=== PATIENT | female | born 1970 | race Caucasian/White ===

== ENCOUNTER 2017-03-22 14:16 | Inpatient (IN) | payer OTHER ==
[~2017-03-22] VITALS: Ht 165.1 cm; Wt 68.7 kg
[2017-03-22 14:42] VITALS: BP 114/75; PULSE 90; RESP 10; O2SAT 99
--- NOTE | 2017-03-22 15:30 | ED.REPORT ---
HPI-General Illness Date of Service Mar 22, 2017 ED Provider: Bolivar Arana MD The patient is a 46 year old female w/ a hx of opiate addiction and IV drug use who presents to the ED c/o of stabbing, right-sided, middle back pain with gradual onset over the past few days. The pain does not radiate, and is exacerbated by inhalation and movement. Tylenol helped to ease the pain slightly , her last dose was 2 hrs ago. Pt rates the pain at 10/10 at its most severe and currently 7/10. She denies any fall or injury that could have caused symptoms as well as fever, incontinence, loss of bowel control, dysuria, urinary urgency, or hematuria. Nursing Notes Stated Complaint: UPPER RIGHT SHOULDER PAIN, HARD TO BREATH Chief Complaint: Back Pain or Injury Nursing Notes Reviewed: Yes Allergies: Coded Allergies: No Known Allergies (Unverified , 03/22/17) No Active Prescriptions or Reported Meds General Time Seen by MD: 15:20 Chief Complaint Back pain Hx Obtained From: Patient Arrived By: Walk-in Sudden in Onset?: Yes Onset Occurred: 3 days ago Symptom Duration: Since onset Location: : Back Quality: Painful, Stabbing Radiation: : Does not radiate Severity: Current: Pain level 7 out of 10 Severity: Maximum: Pain level 10 out of 10 Pertinent Negative: Pt denies other symptoms Recent Healthcare: No recent doctor visit, No recent hospitalization Similar Sx Previous: No Past Medical History Past Medical History denies Past Surgical History laminectomy (L4 L5) in 1997, resultant staph infection Smoking History Unknown if Ever Smoker Social History opiate addiction for 25 years Drug Use: IV drugs, Meth Other Social History: Good social support, Local resident Ambulatory Status Independent Review of Systems Full Review of Systems Constitutional: Reports: Chills, Denies: Fever Female: Denies: Dysuria, Hematuria, Incontinence, Urinary urgency Musculoskeletal: Reports: Back pain Neurologic: Denies: Bladder dysfunction, Bowel dysfunction Complete sys rev & neg: except as marked. Physical Exam Nursing note and vitals reviewed. Constitutional: Well-developed, well-nourished, though appears very uncomfortable. Diaphoretic. Head: Normocephalic and atraumatic. Mouth/Throat: Oropharynx is clear and moist. No oropharyngeal exudate. Eyes: EOM are normal. Pupils are equal, round, and reactive to light. Neck: Supple, no tracheal deviation. Cardiovascular: Normal rate, regular rhythm. No murmurs. Equal and intact distal pulses throughout. Pulmonary/Chest: Effort normal and breath sounds normal. No respiratory distress. Abdominal: Soft. No distension. There is no tenderness, rebound, or guarding. Bowel sounds present Musculoskeletal: Pain with range of motion at right shoulder. No tenderness appreciated. Moving all extremities Neurological: AOx3. Grossly nonfocal exam. Strength and sensation intact and equal to bilateral upper and lower extremities. Skin: Diaphoretic, no rashes or pallor appreciated. Psychiatric: Appropriate mood and affect. Behavior appears normal. Vital Signs Vital Signs Date Time Temp Pulse Resp B/P Pulse Ox O2 Delivery O2 Flow Rate FiO2 03/22/17 19:15 36.8 78 14 99/62 95 Room Air 03/22/17 18:49 80 16 88/50 03/22/17 14:42 37.2 90 10 114/75 99 Room Air Initial VS: Reviewed Interpretation & Diagnostics Interpretation & Diagnostics: MRI CERVICAL SPINE IMPRESSION: 1. Negative for epidural abscess in the cervical spine. 2. Mild spondylitic changes at C5-6 and C6-7. MRI LUMBAR SPINE IMPRESSION: 1. Negative for epidural abscess in the lumbar spine. No evidence of discitis/osetomyelitis. 2. Surgical changes at L5-S1 level. Mild spondylitic changes. MRI THORACIC SPINE IMPRESSION: 1. Negative for epidural abscess in the thoracic spine. 2. Nonspecific enhancement in the parspinous soft tissues from T2-T5 levels. In the setting of IV drug use, this may represent myositis/cellulitis. No gross bone destruction to suggest osteomyelitis. No rim-enhancing fluid colelction to indicate an abscess. Lab Results Interpretation Result Diagram: 03/22/17 1620 03/22/17 1620 Test 03/22/17 16:20 03/22/17 16:39 03/22/17 17:40 White Blood Count 8.7th/mm3 (3.8-10.1) Red Blood Count 4.17mil/mm3 (3.90-5.20) Hemoglobin 11.8g/dL (12.0-15.6) Hematocrit 35.3% (35.0-46.0) Mean Corpuscular Volume 84.7fL (81-100) Mean Corpuscular Hemoglobin 28.3pg (27.0-35.0) Mean Corpuscular Hemoglobin Concent 33.4% (32.0-37.0) Red Cell Distribution Width 13.8% (12.3-15.4) Platelet Count 288bil/L (150-400) Neutrophils (%) (Auto) 81.8% (40-74) Lymphocytes (%) (Auto) 8.4% (14-46) Monocytes (%) (Auto) 7.9% (4-12) Eosinophils (%) (Auto) 1.4% (0-5) Basophils (%) (Auto) 0.2% (0-3) Erythrocyte Sedimentation Rate 57mm/hr (0-32) Prothrombin Time 10.5sec (8.1-12.5) Prothromb Time International Ratio 0.98ratio D-Dimer < 0.50mg/L FEU (<0.50) Sodium Level 131mEq/L (134-144) Potassium Level 3.7mEq/L (3.5-5.2) Chloride Level 93mEq/L (97-108) Carbon Dioxide Level 23mmol/L (18-29) Blood Urea Nitrogen 16mg/dL (6-24) Creatinine 0.74mg/dL (0.57-1.00) Estimat Glomerular Filtration Rate 121mL/min (>59) Glucose Level 99mg/dL (60-99) Lactic Acid Level 0.6mmol/L (0.4-2.0) Calcium Level 9.1mg/dL (8.5-10.1) Magnesium Level 2.0mg/dL (1.6-2.6) Total Bilirubin 1.6mg/dL (0.0-1.2) Aspartate Amino Transf (AST/SGOT) 9U/L (0-50) Alanine Aminotransferase (ALT/SGPT) 9U/L (0-32) Alkaline Phosphatase 63U/L (25-150) Troponin T < 0.010ug/L (0.0-0.011) C-Reactive Protein 7.8mg/dL (0.0-0.5) Total Protein 7.9g/dL (6.4-8.4) Albumin 3.5g/dL (3.4-5.0) Hold [place]ke[place] Top Tube Received (Received) Hold Urine Received (Received) Hold Purple Top Tube Received (Received) Hold Blue Top Tube Received (Received) Hold [place] Top Tube Received (Received) Lab Results Interpretation: LABS: Troponin negative D-dimer neg CBC with a neutrophil 81.8% WBC 8.7 otherwise grossly w/in normal limits Sodium 131 Bilirubin 1.6 ECG Interpretation Time: 16:20 Interpreted by: ED physician Normal ECG Interpretation: Normal sinus rhythm (71) X-Ray Chest Interpretation Chest Xray Interpretation: IMPRESSION: Negative chest. No acute cardiopulmonary process is evident. Dictated by: Cole Cespedes M.D. on 03/22/2017 at 15:26 Approved by: Cole Cespedes M.D. on 03/22/2017 at 15:26 View: Portable Interpretation / Wet Read by: Interpret - Radiologist CT Abd / Pelvis Interpretation IMPRESSION: Normal chest and abdominal CT. Specifically, the aorta is radiographically normal. Dictated by: Michael Pedraza M.D. on 03/22/2017 at 20:38 Approved by: Michael Pedraza M.D. on 03/22/2017 at 20:43 Study type: Abdominal CT no contrast Interpretation / Wet Read by: Interpret - Radiologist Re-Eval/Medical Decision Med Decision/Clinical Course In summary, 46 year old female with a complex past medical history including long-standing IV drug abuse presenting to the ED for evaluation of one day of severe right upper back pain that seems to radiate through to the chest. Differential is broad and includes epidural abscess, other compressive syndrome of the spine, aortic dissection, PE, ACS, osteomyelitis, acute infectious process, myositis. Initial laboratory studies notable for a negative troponin, negative d-dimer, but blood cell count of 8.7 with 81.8% neutrophils, sodium 131 , bilirubin of 1.6. EKG with no acute ischemic changes, sinus rhythm. Vital signs grossly within normal limits. Patient does appear extremely uncomfortable upon reassessment. A CT scan of the patient's chest was obtained to evaluate for aortic dissection; this was negative. Given the patient's history of IV drug abuse, an MRI of her spine was obtained; no evidence of epidural abscess or osteomyelitis, however does have enhancement in the paraspinous soft tissues from T2 to T5 on the right side; this is consistent with the location of the patient is having her pain. In the setting of her IV drug abuse, I am concerned that this may be infectious. Broad-spectrum antibiotics were initiated in the ED after blood cultures were drawn. Plan admission for further management and evaluation. Patient agreeable to the plan as stated, no further questions. Time of Eval: 19:13 Re-Evaluation/Progress Note: Pt rechecked. She is diaphoretic and sleeping. Plan for an MRI. Time of Eval: 22:58 Re-Evaluation/Progress Note: On reassessment, pt is still in pain. Informed pt of plan for admission. Counseled Regarding: Diagnosis, Lab results, Need for admission Discharge & Departure Primary Impression: Myositis Myositis type: unspecified type Myositis location: shoulder Laterality: right Qualified Code: M60.811 - Other myositis, right shoulder Disposition: ADMITTED TO HOSPITAL Discharge Condition All VS Reviewed: Yes Condition: Stable Referrals: NOPCP (PCP) [facility] Scribe Attestation Portion of this note were transcribed by Linn Grace. Dr. Sumit Fleming, personally performed the history, physical exam, and medical decision-making: I reviewed and confirmed the accuracy for the information in the transcribed note. Signed by: kevin Asencio, 03/22/17 1800 copies to: [facility] Bolivar Brwon MD Mar 22, 2017 15:30 Linn Grace Mar 22, 2017 15:54 [facility] Scribliseth Attestation Portion of this note were transcribed by Linn Grace. Dr. Sumit Fleming, personally performed the history, physical exam, and medical decision-making: I reviewed and confirmed the accuracy for the information in the transcribed note. Signed by: kevin Asencio, 03/22/17 1800 copies to: [facility] Bolivar Brown MD Mar 22, 2017 15:30 Linn Grace Mar 22, 2017 15:54
--- NOTE | 2017-03-22 16:28 | DRSVH ---
PROCEDURE: X-RAY CHEST, TWO VIEWS ([id number]) INDICATIONS: pain with deep breath TECHNIQUE: 2 views of the chest were acquired. COMPARISON: None. FINDINGS: Surgical changes and devices: None. Lungs and pleura: No pleural effusions or pneumothorax. Lungs are clear. Mediastinum: Mediastinal contours are normal. Heart size is normal. Bones and chest wall: No suspicious bony abnormalities. Soft tissues appear unremarkable. IMPRESSION: Negative chest. No acute cardiopulmonary process is evident. Dictated by: Cole Cespedes M.D. on 03/22/2017 at 15:26 Approved by: Cole Cespedes M.D. on 03/22/2017 at 15:26
[2017-03-22 16:35] LABS: BASOPHILS % (AUTO) 0.2 % (0-3); EOSINOPHILS % (AUTO) 1.4 % (0-5); MONOCYTES % (AUTO) 7.9 % (4-12); Mean Corpuscular Hemoglobin 28.3 pg (27.0-35.0); Mean Corpuscular Volume 84.7 fL (81-100); NEUTROPHILS % (AUTO) 81.8 % (40-74); Platelet Count 288 bil/L (150-400)
[2017-03-22 17:01] LABS: D-Dimer < 0.50 mg/L FEU (<0.50); INR 0.98 ratio
[2017-03-22 17:09] LABS: TROPONIN T < 0.010 ug/L (0.0-0.011)
[2017-03-22 18:49] VITALS: BP 88/50; PULSE 80; RESP 16
[2017-03-22 19:15] VITALS: BP 99/62; PULSE 78; RESP 14; O2SAT 95
--- NOTE | 2017-03-22 20:45 | DRSVH ---
PROCEDURE: CT ANG CHEST/ABD W/WO CONTRAST ([id number]) INDICATIONS: back pain, diaphoresis; eval dissection, other abn TECHNIQUE: Precontrast 5 mm thick sections acquired from the lung apices to the iliac crests. After the adminis tration of intravenous contrast, 3 mm thick sections again acquired from the lung apices to the iliac crests. 3-dimensional maximum intensity projection (MIP) oblique sagittal and coronal reformats wer e then acquired, and/or 3-dimensional volume rendering reformats. For radiation dose reduction, the following was used: automated exposure control. COMPARISON: None. FINDINGS: Image quality: Excellent. AORTA: Normal thoracic and abdominal aorta. No stenosis dissection, or aneurysm.. CHEST: Lungs and pleura: No acute airspace opacities. No pleural effusions or pneumothorax. Central and p eripheral airways are patent and normal in caliber. Mediastinum: Heart size is normal. No pericardial effusion. No mediastinal or hilar adenopathy by size criteria. Central pulmonary arteries are normal in size. Esophagus is normal in caliber. No h iatal hernias. Bones and chest wall: No axillary adenopathy by size criteria. Thyroid gland is grossly normal. No suspicious bony lesions. No vertebral body compression fractures. ABDOMEN: Vasculature: Celiac trunk and mesenteric arteries are patent. Renal arteries are also patent. Solid organs: Liver and spleen are normal in size. Gallbladder is present. Biliary system is non d ilated. Pancreas enhances normally. No adrenal nodules. Both kidneys are normal in size and enhanc ement, without hydronephrosis. Peritoneum and bowel: No free fluid or air. Bowel loops are normal in caliber and wall thickness. Nodes and vessels: No retroperitoneal or mesenteric adenopathy by size criteria. Inferior vena cava is normal in morphology. Bones: No suspicious bony lesions. No vertebral body compression fractures. Miscellaneous: No ventral hernias. IMPRESSION: Normal chest and abdominal CT. Specifically, the aorta is radiographically normal. Dictated by: Michael Pedraza M.D. on 03/22/2017 at 20:38 Approved by: Michael Pedraza M.D. on 03/22/2017 at 20:43
[2017-03-22] MEDS ORDERED: Meropenem Inj 1,000 MG in 0.9% Sodium Chloride 100 ML IV ONE (23:30)
[2017-03-22] MEDS ORDERED: Vancomycin Dose per Pharmacist XX ONE (23:30)
[2017-03-22] MEDS ORDERED: Clindamycin Inj 900 MG in IV Premix 1 EACH IV ONE (23:30)
[2017-03-22] MEDS ORDERED: Vancomycin Inj 1,250 MG in 0.9% Sodium Chloride 250 ML IV ONE (23:35)
[2017-03-23] VITALS (9 sets, daily range): BP systolic 99–117; BP diastolic 61–75; PULSE 73–92; RESP 15–20; O2SAT 98–100
[2017-03-23] MEDS ORDERED: 0.9% Sodium Chloride 1,000 ML IV ONE (00:15)
[2017-03-23] MEDS ORDERED: 0.9% Sodium Chloride 1,000 ML IV SCH (00:22)
[2017-03-23] MEDS ORDERED: Ondansetron 2 mg/mL 2 mL Inj IVPUSH PRN (00:25)
[2017-03-23] MEDS ORDERED: Polyethylene Glycol (PEG) 17 Gm Powder PO PRN (00:25)
[2017-03-23] MEDS ORDERED: Alum-Mag Hydrox-Simeth 30 mL Suspension PO PRN (00:25)
[2017-03-23] MEDS: Sodium Chloride LOK Flush 10 mL Syringe IVFLUSH SCH ×3 (00:30→16:23)
[2017-03-23] MEDS ORDERED: Ketorolac 15 mg/mL Inj IVPUSH PRN (00:35)
--- NOTE | 2017-03-23 01:16 | PCM.HPMED ---
Subjective Date of Service Mar 23, 2017 Primary Provider: Admitting Physician: Quan Lu MD Primary Care Physician: Faizan Attending Physician: Quan Lu MD Chief Complaint: back pain History of Present Illness: 46 yo F with history of Bipolar disorder, anxiety disorder on chronic benzos, and IVDU who presented to the ED for mid-back pain x 2 days. Patient was lethargic throughout the exam, so history is somewhat limited. Her partner reports that patient had been complaining of fairly severe sharp mid back pain the last few days. She has also been complaining of nausea and general malaise and not feeling well. She admits to using IV heroine and meth, but reports that she receives clean needles from the [facility] and does not lick her needles or share needles. She reports only injecting into her arms and never her back or buttocks. She denies any fevers the last 2 days, but notes drenching chills and nausea intermittently. She specifically denies any CP, SOB , abd pain, rash, or diarrhea. 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 She has been having poor oral intake due to the pain and nausea. In the ED, she did not spike a temperature was both noted to be hypotensive in the upper 80s to 90s systolic. Her CBC was benign other than 82% neutrophils with a white count of 3.7. She does have an ESR 57. Her CMP was notable for mildly elevated total bilirubin and mildly low sodium and chloride with a CRP of 7.8. UA lactic acid were pending She had a CT of her abdomen and pelvis which were benign She also had an MRI of her spine which showed a nonspecific enhancement in the paraspinous soft tissues from T2 to T5, which may have represented an infectious myositis/cellulitis in this IV drug user. She was started on vancomycin, meropenem, clindamycin in the ED. She only received IV Toradol during her ED admission. Review of Systems: Comprehensive review of systems was conducted with the patient and found to be negative except as noted above in HPI. Allergies Coded Allergies: No Known Allergies (Unverified , 03/22/17) Home Medications From next gen 03/15/2016 04:30 PM 09/06 Start Date Medication Directions Stop Date 04/15/2015 clobetasol 0.05 % topical cream apply by topical route 2 times every day a thin layer to the affected area(s) for 2 weeks then only 1-2 times a week as needed 03/15/2016 clonazepam 1 mg tablet 1 po 2-3 times daily only as needed for severe anxiety 06/08/2016 03/15/2016 clotrimazole 1 % topical cream apply by topical route 2 times every day to the affected and surrounding areas of skin in the morning and evening 02/18/2015 TRIAMCINOLONE 0.1% CREAM APPLY A THIN LAYER TO AFFECTED AREA(S) TWO TIMES A DAY PMH Bipolar disorder Depression and Anxiety disorder Benzodiazepine dependence History of opiate addiction Surgical History Laminectomy Family History Family history of hypertension and rheumatoid arthritis Social History Hx Alcohol Use: Yes (rare) Hx Substance Use: Yes (IVD meth) Smoking Status: Current Every Day Smoker Living Arrangement: with Family Exam Vital Signs Vital Sign - Last Date Time Temp Pulse Resp B/P Pulse Ox O2 Delivery O2 Flow Rate FiO2 03/22/17 19:15 36.8 78 14 99/62 95 Room Air Exam General: Well-developed female who appears lethargic and diaphoretic HEENT: Normocephalic, atraumatic. External ears without defect. PERRLA, EOMI. Anicteric sclerae, moist conjunctivae, and no lid lag. Oropharynx was dry but pink mucosa with scattered patricia's pieces Neck: Supple with full range of motion. No jugular venous distension. No bruits. No lymphadenopathy or thyromegaly. Cardiovascular: Regular rate and rhythm with soft systolic murmur Pulmonary: Clear to auscultation bilaterally with no crackles, wheezes, or rhonchi. Normal respiratory effort with no use of accessory muscles. Abdomen: Bowel tones present. Soft, nontender, nondistended. No hepatosplenomegaly or masses appreciated. MSK: Diffuse track ramos on both forearms. No cyanosis or edema noted. Thoracic paraspinal muscles mildly tender to palpation, no consolidation palpable, no erythema/rash noted, although there is a Jim mustard packet that is paper taped to her midback, which may be her back up supply. Skin: Warm, dry, intact, no other rashes appreciated. Neurological:Pt is lethargic and cooperation in neuro exam was limited. She was able to move all extremities, give short answers occasionally. Psychiatric: Lethargic and anxious occasionally. Alert and oriented only to person and place, cooperative. Lab and Diagnostics Result Diagram: 03/22/17 1620 03/22/17 1620 X-Rays, CTs and MRIs PROCEDURE: CT ANG CHEST/ABD W/WO CONTRAST ([id number]) IMPRESSION: Normal chest and abdominal CT. Specifically, the aorta is radiographically normal. PROCEDURE: X-RAY CHEST, TWO VIEWS ([id number]) IMPRESSION: Negative chest. No acute cardiopulmonary process is evident. MRI CERVICAL SPINE IMPRESSION: 1. Negative for epidural abscess in the cervical spine. 2. Mild spondylitic changes at C5-6 and C6-7. MRI LUMBAR SPINE IMPRESSION: 1. Negative for epidural abscess in the lumbar spine. No evidence of discitis/osetomyelitis. 2. Surgical changes at L5-S1 level. Mild spondylitic changes. MRI THORACIC SPINE IMPRESSION: 1. Negative for epidural abscess in the thoracic spine. 2. Nonspecific enhancement in the parspinous soft tissues from T2-T5 levels. In the setting of IV drug use, this may represent myositis/cellulitis. No gross bone destruction to suggest osteomyelitis. No rim-enhancing fluid colelction to indicate an abscess. Assessment & Plan 46 yo F with history of Bipolar disorder, anxiety disorder on chronic benzos, and IVDU who presented to the ED for mid-back pain and diaphoresis x 2 days Acute Myositis, POA As noted on MRI of her thoracics. Finding may represent nonspecific inflammatory disorder, or with her h/o of IVDU, may be due to pyomyositis or cellulitis Blood cultures were drawn in the ED. IV Vanco, Meropenem, and Clindamycin was initiated in the ED on 03/23. Will plan to continue this regimen while we consult Infectious Disease. Will order 1 L NS bolus due to patient's developing hypotension and then continue with 150mls/hr maintenance fluid. LRINEC score of 3, low risk for NSTI Will follow inflammatory markers Toradol and Zofran for symptom management, Dehydration. POA Likely the cause of patient's low sodium and chloride. Will treat as above and monitor Mood Disorders, POA Per [facility] records, patient is chronically on Clonazepam for her anxiety. Will plan to use Ativan prn anxiety She appears to not be on any anti-depressant or anti-psychotic at this moment. She was on [place] and Latuda prior. Will try to avoid Opiates with her history of opiate addiction H/o IVDU, POA Encourage cessation PERSONAL CARE WORKER consult Tobacco dependence. POA Encourage cessation Nicotine patch prn CODE STATUS: Full resuscitation Patient is admitted under inpatient status with expected length of stay greater than 2 midnights due to severity of presenting symptoms, risk of adverse event, and complexity of treatment plan. Pain Evaluation: Pain not Controlled VTE Prophylaxis: Sub-Q Enoxaparin Resuscitation Status: CPR: Attempt Resuscitation Attending Statement The patient was seen and examined together with Dr. Hyde on 03/22 and I agree with the history, exam and plan as outlined in the note above. copies to: Lilian Pena PA-C, Hong D DO Mar 23, 2017 00:34 Quan Lu MD Mar 23, 2017 06:34
[2017-03-23 03:10] LABS: APPEARANCE,URINE CLOUDY (CLEAR,HAZY); COLOR,URINE YELLOW (YELLOW); PH,URINE 5.5 (5.0-8.0)
[2017-03-23 03:15] LABS: OCCULT BLOOD,URINE NEGATIVE (NEGATIVE); UROBILINOGEN,URINE NORMAL (NORMAL)
[2017-03-23] MEDS: 0.9% Sodium Chloride 1,000 ML IV SCH ×2 (04:42→13:31)
[2017-03-23 06:25] LABS: BASOPHILS % (AUTO) 0.3 % (0-3); EOSINOPHILS % (AUTO) 5.1 % (0-5); Mean Corpuscular Hemoglobin 28.1 pg (27.0-35.0); Mean Corpuscular Volume 86.2 fL (81-100); NEUTROPHILS % (AUTO) 70.6 % (40-74); Platelet Count 223 bil/L (150-400)
--- NOTE | 2017-03-23 07:20 | PCM.CONPHA ---
Subjective Date of Service: Mar 23, 2017 Requesting Provider: Franky Hyde DO back pain History of Present Illness myositis/cellulitis Reason for Pharmacy Consult: Vancomycin Dosing Objective Assessment/Plan Assessment/Plan A/ - 46 y/o ivdu female admitted in for suspected myositis/cellulitis and Vancomycin initiated for empirical coverage - Afebrile. WBC is unremarkable at 8.7. Blood cultures are pending - In ED, received vancomycin iv loading dose 1250mg, meropenem x1, and clindamycin which to be continued - Wt: 68.7kg, ht: 165cm, BMI: 25.2 kg/m2, SCr: 0.78 mg/dL, estimated clearance~102ml/min, t1/2~8hrs, Vd~48L - ID consult ordered for in the morning, and IVF @150ml/hr P/ - Give vancomycin 750mg iv q8h, 1st dose starts 7hrs after loading dose. Trough level ordered before 4th dose @0200 on 03/24 Pharmacy will continue to monitor and make necessary adjustment Thank you for consulting clinical pharmacy in the care of this patient Jackie Espino Mar 23, 2017 07:20
--- NOTE | 2017-03-23 07:31 | NUR ---
Admit Pt admitted to [facility] rm 1029 at 0025 from ED. Pt here with severe pain in right shoulder. A/O x3, able to make needs known but drowsy due to ativan given in the ED. Oriented to room, bathroom and bed controls. IV in right AC patent, fluid bolus running. Pt is CPR. General diet, Able to transfer off gurney and walk to bed. SCD's on. Ativan and toradol being used for pain control. VSS, afebrile. Call light in reach, care continues.
[2017-03-23] MEDS ORDERED: Meropenem Inj 1,000 MG in 0.9% Sodium Chloride 100 ML IV SCH (08:30)
[2017-03-23] MEDS ORDERED: Vancomycin Dose per Pharmacist XX SCH (08:30)
--- NOTE | 2017-03-23 09:33 | DRSVH ---
PROCEDURE: MRI LUMBAR SPINE WITH AND WITHOUT CONTRAST ([id number]) INDICATIONS: back pain, hx IVDA, diaphoresis; eval abscess, etc TECHNIQUE: Noncontrast sagittal T1 spin echo and T2 fast spin echo, sagittal STIR, axial T1 and T2 fast spin ech o through the lumbar spine. In cases with scoliosis, additional coronal T2 fast spin echo may be per formed. After the administration of contrast, sagittal and axial T1 spin echo with fat saturation th rough the lumbar spine. COMPARISON: None. FINDINGS: Image quality: Excellent. Alignment and curvature: Postsurgical changes compatible with L5-S1 interbody fusion noted. There is normal bony alignment. There is convex right lumbar spine curvature. Marrow: Reactive endplate change is noted adjacent to the L4-L5 disc. No acute vertebral body lex raymond fractures. No suspicious marrow enhancement. Spinal cord: Conus medullaris terminates at the L1-L2 disc level. Visualized spinal cord demonstrat es normal signal, without suspicious enhancement. No epidural fluid collections identified. Paraspinous soft tissues: No paravertebral masses or abnormal enhancement. L1-L2: Loss of disc signal and height. Moderate, diffuse disc bulge. Mild central canal secondary to disc disease. Mild bilateral neuroforaminal narrowing secondary to disc disease. L2-L3: Loss of disc signal and height. Moderate, diffuse disc bulge. Mild central canal secondary to disc disease. Mild bilateral neuroforaminal narrowing secondary to disc disease. L3-L4: Loss of the signal. Moderate, diffuse disc bulge. Mild bilateral facet hypertrophy. Moderate c entral canal secondary to disc disease and facet hypertrophy. Moderate bilateral neural foraminal pee rowing secondary to disc and facet disease. L4-L5: Loss of disc signal and height. Mild diffuse disc bulge. Moderate bilateral facet hypertrophy. Mild central canal secondary to disc disease and facet hypertrophy. Moderate bilateral neural forami nal narrowing secondary to disc and facet disease. L5-S1: Status post discectomy and interbody fusion. No central stenosis. No neural foraminal narrowin g.. IMPRESSION: 1. No evidence for epidural abscess. 2. No evidence of discitis/osteomyelitis. 3. Postsurgical changes. 4. Multilevel degenerative disease. 5. Multiple psychotropic. 6. Mild L1-L2, L2 and L3 and L4-L5 central canal narrowing. Moderate L3-L4 central canal narrowing. 7. Mild bilateral L1-L2 and L2-L3 neural foraminal narrowing. Moderate bilateral L3-L4 and L4-L5 neur al foraminal narrowing. Dictated by: Chioma Jalloh MD, PhD on 03/23/2017 at 8:33 Approved by: Chioma Jalloh MD, PhD on 03/23/2017 at 9:31
[2017-03-23] MEDS: Ketorolac 15 mg/mL Inj IVPUSH PRN ×2 (09:49→13:41)
--- NOTE | 2017-03-23 10:06 | DRSVH ---
PROCEDURE: MRI THORACIC SPINE WITH AND WITHOUT CONTRAST ([id number]) INDICATIONS: back pain, hx IVDA, diaphoresis; eval abscess, etc TECHNIQUE: Noncontrast sagittal T1 spin echo and T2 fast spin echo, sagittal STIR, axial T1 and T2 fast spin ech o through the thoracic spine. After the administration of contrast, axial and sagittal T1 spin echo with fat saturation through the thoracic spine. COMPARISON: [facility], MR, MR CERVICAL SPINE W&WO CON, 03/22/2017, 21:34. [facility], MR, MR LUMBAR SPINE W&WO CON, 03/22/2017, 21:34. FINDINGS: Image quality: Excellent. Alignment and curvature: There is normal bony alignment and curvature. Marrow: Marrow is of normal overall signal. No acute vertebral body compression fractures. Spinal cord: Visualized spinal cord is of normal signal and size, without abnormal enhancement. No e pidural abscess is identified. There is linear, postcontrast enhancement in the posterior epidural sp zhao extending from the T2-T8 vertebral bodies. There is slight flattening contour of the posterior ma rgin of the thoracic spinal cord level he T3-T4 disc. No mass or abnormal enhancement is identified i n the region of the slight posterior margin thoracic spinal cord flattening deformity. Slight deformi ty may be caused by a small arachnoid cyst. Paraspinous soft tissues: No paravertebral masses. There is mild postcontrast enhancement in the pos terior paraspinous soft tissues from the level of the T2-T5 vertebral bodies. Miscellaneous: Central canal and foramina appear widely patent at all scanned levels. IMPRESSION: 1. No epidural abscess identified. There is mild, linear postcontrast enhancement in the posterior ep idural space extending from T2-T8 vertebral body levels which may represent a reactive change associa lorenza with adjacent T2-T5 myositis or cellulitis or early epidural space infection. 2. Mild post contrast enhancement involving the dura paraspinous soft tissues are the level the T2-T5 vertebral bodies. Finding is nonspecific but can be seen in myositis/cellulitis. Please correlate wi th clinical data. 3. No evidence of discitis/osteomyelitis. Dictated by: Chioma Jalloh MD, PhD on 03/23/2017 at 9:56 Approved by: Chioma Jalloh MD, PhD on 03/23/2017 at 10:03
[2017-03-23] MEDS: Vancomycin Inj 750 MG in 0.9% Sodium Chloride 250 ML IV SCH ×2 (10:50→17:38)
[2017-03-23] MEDS ORDERED: Clindamycin Inj 900 MG in IV Premix 1 EACH IV SCH (11:00)
--- NOTE | 2017-03-23 11:15 | DRSVH ---
PROCEDURE: MRI CERVICAL SPINE WITH AND WITHOUT CONTRAST ([id number]) INDICATIONS: back pain, hx IVDA, diaphoresis; eval abscess. TECHNIQUE: Noncontrast sagittal T1 spin echo and T2 fast spin echo, sagittal STIR, foraminal oblique sagittal T2 fast spin echo, axial gradient echo or T2 fast spin echo through the cervical spine. After the admi nistration of contrast, sagittal and axial T1 spin echo with fat saturation through the cervical spin e. COMPARISON: None. FINDINGS: Image quality: Limited by motion artifact. Alignment and curvature: There is normal bony alignment. There is straightening of normal cervical s pine curvature. Marrow: Reactive endplate change is noted adjacent to the C4-C5, C5-C6 and C6-C7 discs. Spinal cord: Visualized spinal cord is normal in size, without white matter lesions. No suspicious intramedullary enhancement. No cerebellar tonsillar herniation. No epidural abscess identified. Paraspinous soft tissues: No paravertebral masses or suspicious enhancement. C2-C3: Normal appearance. C3-C4: Loss of the signal. Minimal, diffuse disc bulge. No central stenosis. Mild bilateral uncoverte bral joint hypertrophy. Mild bilateral neural foraminal narrowing secondary to disc disease and uncov ertebral joint hypertrophy. C4-C5: Loss of the signal. Mild, diffuse disc bulge. No central stenosis. No neural foraminal narrowi ng. Focal high intensity zone is noted in the posterior annulus compatible with a fissure. C5-C6: Loss of disc signal and height. Moderate, diffuse disc bulge. Moderate narrowing of the centra l canal secondary to disc disease. Mild bilateral uncovertebral joint hypertrophy. Mild right and mod erate left neural foraminal narrowing secondary to disc disease and uncovertebral joint hypertrophy. C6-C7: Loss of disc signal and height. Mild diffuse disc bulge. Mild central canal secondary to disc disease. Moderate right and mild left uncovertebral joint hypertrophy. Moderate right and mild left n eural foraminal narrowing secondary to disc disease and uncovertebral joint hypertrophy. C7-T1: Normal appearance. IMPRESSION: 1. No epidural abscess. 2. No discitis/osteomyelitis. 3. Multilevel degenerative disc disease. 4. Moderate C5-C6 central canal narrowing. Mild C6-C7 central canal narrowing. 5. Mild bilateral C3-C4 neural foraminal narrowing. Mild right and moderate left C5-C6 neural foramin al narrowing. Moderate right and mild left C6-C7 neural foraminal narrowing. Dictated by: Chioma Jalloh MD, PhD on 03/23/2017 at 11:06 Approved by: Chioma Jalloh MD, PhD on 03/23/2017 at 11:13
--- NOTE | 2017-03-23 12:21 | CONS ---
[address] [address] CONSULTATION REPORT PATIENT: KAYLENE GALLARDO : 1970 MR#: [id number] ADMIT: 03/22/2017 JOB ID: [id number] DATE OF SERVICE: 03/23/2017 INFECTIOUS DISEASE CONSULTATION: I thank Dr. Rojas for this timely consult. REASON FOR CONSULTATION: Paraspinous infection in an IV drug user. HISTORY OF THE PRESENT ILLNESS: The patient is a 46-year-old intravenous heroin user who states that she uses IV heroin on a daily basis but has never had any significant infections whatsoever. She has not been confined in any hospital for almost 20 years and reports no infectious complications whatsoever from her intravenous heroin use. She reports that more recently, she developed fairly severe back pain, which led to her evaluation in the ED late on March 22 and her admission early this morning. This was associated with diaphoresis and malaise, as well as some nausea, vomiting and generalized weakness but no focal weakness, fevers, or chills. She denies any ongoing pulmonary symptomatology. She tells us that she has good strength in her lower extremities, no problems with her bowel or bladder or balance. She does believe she is also now starting to withdraw from heroin. PAST MEDICAL HISTORY: 1. Bipolar disorder. 2. Generalized anxiety disorder. 3. Chronic benzodiazepine use. 4. Longstanding IV drug use. 5. History of lower lumbar laminectomy for back pain. SOCIAL HISTORY: The patient is a daily IV heroin user. She does not use alcohol but she is also significant cigarette smoker. She is unemployed and lives on [facility]. FAMILY HISTORY: Positive for TB. When asked to specify which relatives were infected she states "everyone." Going to her lethargy, she does not provide any more history. REVIEW OF SYSTEMS: Was done but was a bit difficult because of the patient's lethargic state. She says she has no headache, no visual change, no sore throat or trouble swallowing. She has no cough or shortness of breath. No chest pain. She has had nausea and vomiting, which may be due to drug withdrawal or not. She is not certain. No diarrhea. No trouble controlling her bowel or bladder. No troubles with balance. She reports good strength in her lower extremities. No sensory abnormalities. Review of systems otherwise negative. PHYSICAL EXAMINATION: Reveals an afebrile woman. Temperature 37.6. She has been afebrile throughout her slightly less than 24 hours here in the hospital. Pulse is 73, respiratory rate 18, blood pressure 114/73, saturating 100% on room air. The patient is quite sleepy and difficult to rouse or keep awake but when awake she is oriented and able to provide an appropriate history. She looks depressed and somewhat withdrawn and older than 46 years old. Her current BMI is 25, however. Head without trauma. No temporal wasting. Eyes without conjunctivitis. Oral cavity: No thrush or hairy leukoplakia. Neck: Supple. Lungs: Clear. Cardiac tones: Regular rate and rhythm without murmur. Abdomen without hepatosplenomegaly or ascites. She does not have a Dubon catheter. Her back is exquisitely tender over the upper thoracic area. She has good strength in her lower extremities. She has intact ankle jerks. She has no skin rash. No synovitis and no focal neurologic deficits. Remainder of the physical unremarkable. LABORATORIES: Include white count 6700 with basically normal diff except 5% eos. Her creatinine 0.78. Urinalysis, no white cells, no red cells. A streptozyme is pending as our only serology. Two sets of blood cultures were drawn in the ED just past midnight on March 22, and those are negative at almost 36 hours now. The patient's chest x-ray is clear. A chest and abdomen CT scan was done which was normal. The thoracic MRI is abnormal and shows no epidural abscess. No diskitis and no osteomyelitis but there is linear enhancement in the posterior epidural space from T2-T8. There is what appears to be T2-T5 myositis noted. A lumbar spine MRI shows surgical changes but no diskitis, osteomyelitis, or any other infectious concerns, and cervical spine, no diskitis, epidural, or osteomyelitis. There are some degenerative changes. IMPRESSION: This is a complicated case of a younger woman who has been a daily intravenous drug user for a very long period of time and has never suffered an infectious complication. She obviously takes care not to lick needles and uses good technique. Nonetheless, she has now suffered what appears to be a serious infection involving her thoracic paraspinous region with some enhancement of the posterior epidural space but without maggie epidural infection. Unfortunately, that leaves us with no target, such as an infected disk or epidural space, to perform a needle biopsy or open surgery to obtain additional cultures. We are going to be left with largely empiric treatment, I am afraid. Most infections such as this are due to Staphylococcus aureus but many possibilities exist including gram-negative rods and other more atypical organisms such as tuberculosis and others. At this point, we are going to be forced to treat the patient broadly and hope that our blood cultures deliver a positive result. Note that the patient's CRP is very elevated which raises the possibility of early epidural abscess and/or early vertebral osteomyelitis. RECOMMENDATIONS: 1. Will need to complete our medical database here with an HIV, hepatitis C and QuantiFERON Gold given her family history. 2. There is no indication to check for brucellosis under these circumstances. 3. Will check a bartonella serology on the off chance that is the culprit here, though I think it is very unlikely. 4. I agree with the very broad antibiotics which have been started and unfortunately, I am going to be stuck with fairly broad antibiotics unless we find a positive culture. Clindamycin can be discontinued at this point but will continue with vancomycin and meropenem for the time being. 5. Will continue to follow this complex patient with you. Note that I will be off work the next nine days and returning to work April 02 but I can be reached by telephone about this or any other case. 6. Serial neural evaluations are indicated on this patient, and these should probably be done twice or so a day. These should include some tests of strength in the lower extremities, as well as focused questioning about bowel and bladder function. 7. At this point, I do not see an indication to transfer the patient for neurosurgical or spine surgery evaluation, as there are no focal findings and no clear epidural abscess seen on the MRI scan.
[2017-03-23] MEDS ORDERED: Multivit-Miner-Folic Acid-Iron Tablet PO SCH (17:40)
--- NOTE | 2017-03-23 18:22 | NUR ---
AMA Pt threatening AMA multiple times throughout the shift; going through withdrawal. Pt impulsive and not caring about IV lines/poles. edge burnisher called Dr. Rojas who came down to talk to pt. Pt then agreeable to care - This RN also talked to pt re: current plan of care. Pt received 5mg IVP Valium. Pt finished eating dinner and again agitated and stating AMA because she had to 'wait an hour' for medications, when it had been 30-45mins at best. Page to Dr. Rojas again and made aware that pt going to leave AMA. Pt aware of risks of leaving AMA and signed. IV dc'd intact. Security present to unlock belongings. Pt with belongings and walked off unit.
[2017-03-24] MEDS ORDERED: Vancomycin Serum Trough XX ONE (01:30)
--- NOTE | 2017-03-24 07:25 | PCM.DC.MED ---
Discharge Summary Date of Service Mar 24, 2017 Dates of Hospitalization Date of Hospital Admission Mar 22, 2017 at 23:49 Date of Discharge: Mar 23, 2017 (AMA) Providers: Admitting Physician: Quan Lu MD Primary Care Physician: Faizan Attending Physician: Peter Rojas MD Procedures XRay, CTs & MRIs PROCEDURE: CT ANG CHEST/ABD W/WO CONTRAST ([id number]) IMPRESSION: Normal chest and abdominal CT. Specifically, the aorta is radiographically normal. PROCEDURE: X-RAY CHEST, TWO VIEWS ([id number]) IMPRESSION: Negative chest. No acute cardiopulmonary process is evident. MRI CERVICAL SPINE IMPRESSION: 1. Negative for epidural abscess in the cervical spine. 2. Mild spondylitic changes at C5-6 and C6-7. MRI LUMBAR SPINE IMPRESSION: 1. Negative for epidural abscess in the lumbar spine. No evidence of discitis/osetomyelitis. 2. Surgical changes at L5-S1 level. Mild spondylitic changes. MRI THORACIC SPINE IMPRESSION: 1. Negative for epidural abscess in the thoracic spine. 2. Nonspecific enhancement in the parspinous soft tissues from T2-T5 levels. In the setting of IV drug use, this may represent myositis/cellulitis. No gross bone destruction to suggest osteomyelitis. No rim-enhancing fluid colelction to indicate an abscess. Brief History 46 yo F with history of Bipolar disorder, anxiety disorder on chronic benzos, and IVDU who presented to the ED for mid-back pain x 2 days. Patient was lethargic throughout the exam, so history is somewhat limited. Her partner reports that patient had been complaining of fairly severe sharp mid back pain the last few days. She has also been complaining of nausea and general malaise and not feeling well. She admits to using IV heroine and meth, but reports that she receives clean needles from the [facility] and does not lick her needles or share needles. She reports only injecting into her arms and never her back or buttocks. She denies any fevers the last 2 days, but notes drenching chills and nausea intermittently. She specifically denies any CP, SOB , abd pain, rash, or diarrhea. 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 She has been having poor oral intake due to the pain and nausea. In the ED, she did not spike a temperature was both noted to be hypotensive in the upper 80s to 90s systolic. Her CBC was benign other than 82% neutrophils with a white count of 3.7. She does have an ESR 57. Her CMP was notable for mildly elevated total bilirubin and mildly low sodium and chloride with a CRP of 7.8. UA lactic acid were pending She had a CT of her abdomen and pelvis which were benign She also had an MRI of her spine which showed a nonspecific enhancement in the paraspinous soft tissues from T2 to T5, which may have represented an infectious myositis/cellulitis in this IV drug user. She was started on vancomycin, meropenem, clindamycin in the ED. She only received IV Toradol during her ED admission. Hospital Course 46 yo F with history of Bipolar disorder, anxiety disorder on chronic benzos, and IVDU who presented to the ED for mid-back pain and diaphoresis x 2 days. Patient was being treated for infection and benzo withdrawl. LEFT AMA. Acute Myositis, POA As noted on MRI of her thoracics. Finding may represent nonspecific inflammatory disorder, or with her h/o of IVDU, may be due to pyomyositis or cellulitis Blood cultures were drawn in the ED. IV Vanco, Meropenem, and Clindamycin was initiated in the ED on 03/23. ID consulted, kept on vanco and meropenem Will order 1 L NS bolus due to patient's developing hypotension and then continue with 150mls/hr maintenance fluid. LRINEC score of 3, low risk for NSTI Toradol and Zofran for symptom management, Benzo withdrawl on CIWA protocol, with scheduled valium TID Dehydration. POA Likely the cause of patient's low sodium and chloride. Mood Disorders, POA Per [employer] records, patient is chronically on Clonazepam for her anxiety. H/o IVDU, POA Encourage cessation PRESS WASHER consult Tobacco dependence. POA Encourage cessation Nicotine patch prn CODE STATUS: Full resuscitation Patient left AMA. Exam Vital Signs (Last) Date Time Temp Pulse Resp B/P Pulse Ox O2 Delivery O2 Flow Rate FiO2 03/23/17 17:53 91 03/23/17 17:06 37.1 18 111/69 100 Room Air Test 03/22/17 16:20 03/22/17 16:39 03/22/17 17:40 03/23/17 06:11 Erythrocyte Sedimentation Rate 57mm/hr (0-32) Prothrombin Time 10.5sec (8.1-12.5) Prothromb Time International Ratio 0.98ratio D-Dimer < 0.50mg/L FEU (<0.50) Lactic Acid Level 0.6mmol/L (0.4-2.0) Magnesium Level 2.0mg/dL (1.6-2.6) Troponin T < 0.010ug/L (0.0-0.011) Hold Mckeon Top Tube Received (Received) Streptozyme 439.0IU/mL (0.0-200.0) Urine Color Yellow (YELLOW) Urine Appearance Cloudy (CLEAR,HAZY) Urine pH 5.5 (5.0-8.0) Urine Specific [place] 1.025 (1.003-1.035) Urine Protein Negativemg/dL (NEG,TRACE) Urine Glucose (UA) Negativemg/dL (NEGATIVE) Urine Ketones Tracemg/dL (NEGATIVE) Urine Occult Blood Negative (NEGATIVE) Urine Nitrite Negative (NEGATIVE) Urine Bilirubin Negative (NEGATIVE) Urine Urobilinogen Normalmg/dL (NORMAL) Urine Leukocyte Esterase Negative (NEGATIVE) Urine RBC 0-2/hpf (0-2) Urine WBC 0-5/hpf (0-5) Urine Epithelial Cells Few/hpf (NONE-MOD) Urine Crystals None seen (NONE SEEN) Urine Bacteria Few/hpf (NONE-FEW) Urine Hyaline Casts None/lpf (NONE) Urine Granular Casts None seen (NONE SEEN) Urine Waxy Casts None seen (NONE SEEN) Urine Red Blood Cell Casts None seen (NONE SEEN) Urine White Blood Cell Casts None seen (NONE SEEN) Urine Mucus None seen (None Seen) Urine Trichomonas None seen (NONE SEEN) Urine Yeast None (NONE SEEN) Urinalysis Comment Amorphous sediment Urine Culture Reflexed Not indicated Hold Urine Received (Received) Hold Purple Top Tube Received (Received) Hold Blue Top Tube Received (Received) Hold [place] Top Tube Received (Received) White Blood Count 6.7th/mm3 (3.8-10.1) Red Blood Count 3.63mil/mm3 (3.90-5.20) Hemoglobin 10.2g/dL (12.0-15.6) Hematocrit 31.3% (35.0-46.0) Mean Corpuscular Volume 86.2fL (81-100) Mean Corpuscular Hemoglobin 28.1pg (27.0-35.0) Mean Corpuscular Hemoglobin Concent 32.6% (32.0-37.0) Red Cell Distribution Width 13.9% (12.3-15.4) Platelet Count 223bil/L (150-400) Neutrophils (%) (Auto) 70.6% (40-74) Lymphocytes (%) (Auto) 12.0% (14-46) Monocytes (%) (Auto) 12.0% (4-12) Eosinophils (%) (Auto) 5.1% (0-5) Basophils (%) (Auto) 0.3% (0-3) Sodium Level 136mEq/L (134-144) Potassium Level 3.7mEq/L (3.5-5.2) Chloride Level 101mEq/L (97-108) Carbon Dioxide Level 24mmol/L (18-29) Blood Urea Nitrogen 13mg/dL (6-24) Creatinine 0.78mg/dL (0.57-1.00) Estimat Glomerular Filtration Rate 114mL/min (>59) Glucose Level 98mg/dL (60-99) Calcium Level 8.5mg/dL (8.5-10.1) Total Bilirubin 1.1mg/dL (0.0-1.2) Aspartate Amino Transf (AST/SGOT) 11U/L (0-50) Alanine Aminotransferase (ALT/SGPT) 8U/L (0-32) Alkaline Phosphatase 57U/L (25-150) C-Reactive Protein 11.0mg/dL (0.0-0.5) Total Protein 6.5g/dL (6.4-8.4) Albumin 3.1g/dL (3.4-5.0) Procalcitonin 0.34ng/mL (0.00-0.08) Test 03/23/17 12:04 Hepatitis C Antibody >11.0s/co ratio HIV (1&2) Ag and Ab, 4th Generation Non reactive (Non Reactive) Discharge Medications No Active Prescriptions or Reported Meds Time spent 35 mins Peter Rojas MD Mar 24, 2017 07:25
== END 2017-03-23 18:20 | disposition left against medical advice (07) | DRG 558 ==
LOC: SED 14:16 → OSC 23:49
PROVIDERS: ADMIT Hospitalist; ATTEND Internal Medicine
DX: M60.08 Infective myositis, other site (principal); F11.23 Opioid dependence with withdrawal; F19.239 Other psychoactive substance dependence with withdrawal, unspecified; E86.0 Dehydration; F17.210 Nicotine dependence, cigarettes, uncomplicated; F41.8 Other specified anxiety disorders

== ENCOUNTER 2017-03-24 22:50 | Inpatient (IN) | payer OTHER ==
[~2017-03-24] VITALS: Ht 165.1 cm; Wt 72.5 kg
[2017-03-24 23:02] VITALS: BP 96/65; PULSE 78; RESP 16; O2SAT 98
--- NOTE | 2017-03-25 01:00 | ED.REPORT ---
HPI-General Illness Date of Service Mar 25, 2017 ED Provider: Dr. Light Pt is a 46 year old female with a hx of IV drug use presenting to the ED complaining of back pain due to a suspected abscess onset a few days ago. She was admitted last night for the suspected abscess but left today AMA due to a panic attack. She reports IV drug use currently. Denies hx of abscess in the past or any other symptoms at this time. Nursing Notes Stated Complaint: ABSCESS Chief Complaint: General Complaint Nursing Notes Reviewed: Yes Allergies: Coded Allergies: No Known Allergies (Unverified , 03/22/17) No Active Prescriptions or Reported Meds General Time Seen by MD: 00:59 Chief Complaint Other (Abscess) Hx Obtained From: Patient Arrived By: Walk-in Sudden in Onset?: No Onset Occurred: 4 days ago Symptom Duration: Since onset Location: : Back Quality: Painful Severity: Current: Severe Severity: Maximum: Severe Recent Healthcare: Recent doctor visit, Recent hospitalization Similar Sx Previous: No Past Medical History Past Medical History IV drug abuse Past Surgical History laminectomy (L4 L5) in 1997, resultant staph infection Smoking History Current Every Day Smoker Social History opiate addiction for 25 years Drug Use: IV drugs, Meth Other Social History: Good social support, Local resident Ambulatory Status Independent Review of Systems Full Review of Systems Constitutional: Denies: Fever, Weakness - generalized Respiratory: Denies: Shortness of breath Cardiovascular: Denies: Chest pain Musculoskeletal: Reports: Back pain Skin: Reports Rash, Reports Swelling Complete sys rev & neg: except as marked. Physical Exam Vital Signs Vital Signs Date Time Temp Pulse Resp B/P Pulse Ox O2 Delivery O2 Flow Rate FiO2 03/25/17 04:44 62 16 103/68 100 Room Air 03/24/17 23:02 37.3 78 16 96/65 98 Room Air Initial VS: Reviewed, Vital signs abnormal General/Constitutional: Well-developed, Well-nourished Head / Eyes: Atraumatic, Normocephalic, PERRL ENT: Mucous membranes moist, Conjunctiva normal, No scleral icterus Neck: Supple, Non-tender, Full range of motion Respiratory: Breath sounds normal, Clear to auscultation, No respiratory distress Cardiovascular: Regular rate & rhythm, Heart sounds normal, Intact distal pulses Abdomen / GI: Soft, Non-tender, No guarding, No rebound, No distention Extremities: Vascular intact, Neuro intact, No swelling, No tenderness Skin: Warm, Dry, No cyanosis Neurologic: Alert, Oriented, Nonfocal Psychiatric: Mood/affect normal, Behavior normal, Normal thought content Skin: Warm, Dry, Intact Multiple track ramos and multiple healed skin ulcerations from that. Interpretation & Diagnostics Lab Results Interpretation Result Diagram: 03/25/17 0150 03/25/17 0150 Test 03/25/17 01:50 White Blood Count 7.6th/mm3 (3.8-10.1) Red Blood Count 3.81mil/mm3 (3.90-5.20) Hemoglobin 10.7g/dL (12.0-15.6) Hematocrit 32.7% (35.0-46.0) Mean Corpuscular Volume 85.8fL (81-100) Mean Corpuscular Hemoglobin 28.1pg (27.0-35.0) Mean Corpuscular Hemoglobin Concent 32.7% (32.0-37.0) Red Cell Distribution Width 13.7% (12.3-15.4) Platelet Count 185bil/L (150-400) Neutrophils (%) (Auto) 61.6% (40-74) Lymphocytes (%) (Auto) 24.1% (14-46) Monocytes (%) (Auto) 10.8% (4-12) Eosinophils (%) (Auto) 2.9% (0-5) Basophils (%) (Auto) 0.3% (0-3) Erythrocyte Sedimentation Rate 58mm/hr (0-32) Hold Urine Received (Received) Sodium Level 136mEq/L (134-144) Potassium Level 3.6mEq/L (3.5-5.2) Chloride Level 98mEq/L (97-108) Carbon Dioxide Level 24mmol/L (18-29) Blood Urea Nitrogen 7mg/dL (6-24) Creatinine 0.64mg/dL (0.57-1.00) Estimat Glomerular Filtration Rate 143mL/min (>59) Glucose Level 118mg/dL (60-99) Lactic Acid Level 0.9mmol/L (0.4-2.0) Calcium Level 8.9mg/dL (8.5-10.1) Magnesium Level 1.9mg/dL (1.6-2.6) Total Bilirubin 0.7mg/dL (0.0-1.2) Aspartate Amino Transf (AST/SGOT) 14U/L (0-50) Alanine Aminotransferase (ALT/SGPT) 21U/L (0-32) Alkaline Phosphatase 76U/L (25-150) C-Reactive Protein 10.5mg/dL (0.0-0.5) Total Protein 7.7g/dL (6.4-8.4) Albumin 3.2g/dL (3.4-5.0) Procalcitonin 0.16ng/mL (0.00-0.08) Lab Results Interpretation: Normal white count, elevated CRP and ESR. Re-Eval/Medical Decision Med Decision/Clinical Course 46-year-old IV drug user was in the hospital for a paraspinous pyomyositis. She left AMA because of issues with her addiction. She comes back for readmission. She was restarted on her antibiotics and admitted to Dr. Rogel hospitalist service. Time of Eval: 01:30 Patient Status: Condition improved Re-Evaluation/Progress Note: Performed physical exam and discussed plan for admission. Re-Evaluation/Progress Note: Pt understands and agrees with plan for admission. Consultation : Referral / Consult Name: Liyah Rogel DO Call Returned at: 04:06 Register Repairer: Will see patient, Agrees with plan, Accepts admit Counseled Regarding: Diagnosis, Lab results, Need for admission Discharge & Departure Primary Impression: Pyomyositis Disposition: ADMITTED TO HOSPITAL Discharge Condition All VS Reviewed: Yes Condition: Improved Referrals: NOPCP (PCP) Scribe Attestation Portions of this note were transcribed by Yaneth Skelton. I, Dr. Light personally performed the history, physical exam and medical decision-making; I reviewed and confirmed the accuracy of the information in the transcribed note. Signed by: Racquel Franco, 03/25/2017 at 0405. Rony Light MD Mar 25, 2017 01:00 YANETH SKELTON Mar 25, 2017 01:14
[2017-03-25] MEDS ORDERED: 0.9% Sodium Chloride 1,000 ML IV ONE (01:45)
[2017-03-25] MEDS ORDERED: Vancomycin Dose per Pharmacist XX ONE (01:45)
[2017-03-25] MEDS ORDERED: Meropenem Inj 1,000 MG in 0.9% Sodium Chloride 100 ML IV ONE (01:45)
[2017-03-25] MEDS ORDERED: Vancomycin Inj 1,250 MG in 0.9% Sodium Chloride 250 ML IV ONE (01:55)
[2017-03-25 02:01] LABS: BASOPHILS % (AUTO) 0.3 % (0-3); EOSINOPHILS % (AUTO) 2.9 % (0-5); MONOCYTES % (AUTO) 10.8 % (4-12); Mean Corpuscular Hemoglobin 28.1 pg (27.0-35.0); Mean Corpuscular Volume 85.8 fL (81-100); NEUTROPHILS % (AUTO) 61.6 % (40-74); Platelet Count 185 bil/L (150-400)
[2017-03-25 02:29] LABS: ERYTHROCYTE SEDIMENTATION RATE 58 mm/hr (0-32)
[2017-03-25 02:47] LABS: Magnesium 1.9 mg/dL (1.6-2.6)
[2017-03-25 04:44] VITALS: BP 103/68; PULSE 62; RESP 16; O2SAT 100
[2017-03-25] MEDS ORDERED: Polyethylene Glycol (PEG) 17 Gm Powder PO PRN (05:40)
[2017-03-25] MEDS ORDERED: Alum-Mag Hydrox-Simeth 30 mL Suspension PO PRN (05:40)
[2017-03-25] MEDS ORDERED: Ondansetron 2 mg/mL 2 mL Inj IVPUSH PRN (05:40)
--- NOTE | 2017-03-25 05:42 | PCM.HPMED ---
Subjective Date of Service Mar 25, 2017 Primary Provider: Admitting Physician: Primary Care Physician: Faizan Attending Physician: Admit Status: From the Emergency Department, Full Admit Chief Complaint: Back pain. . History of Present Illness: Mary Ann Ramirez is a 46-year-old female with a past medical history significant for IV drug abuse who presents to [facility] emergency department complaining of back pain thought to be secondary to recent myositis and possible abscess. She was admitted 03/23/2017 for the suspected abscess but left AMA on 03/24/2017 due to a panic attack. She reports daily IV drug use and she last used around 1400 on 03/24/2017. She denies rhinitis, pharyngitis, chest pain, abdominal pain, nausea, vomiting, fever, chills, dysuria, constipation or diarrhea, any focal weakness, or paresthesias. She does however endorse dull headache at occiput, blurry vision, subjective shortness of breath, and night sweats 2 weeks. She denies saddle anesthesia or bowel or bladder dysfunction. Neurological exam is nonfocal. She denies any complaints at this time. Vital signs in the ER: Temperature 37.3. Pulse 78. Respiratory rate 16. Blood pressure 96/65. Pulse ox 98% room air. She received meropenem and vancomycin in the ED. No PCP. . Review of Systems: A comprehensive review of systems was conducted with the patient and found to be negative except as above in the History of Present Illness. . Allergies Coded Allergies: No Known Allergies (Unverified , 03/22/17) Home Medications None. . PMH 1. Bipolar disorder. 2. Depression and anxiety. 3. IV drug use. 4. Hepatitis C (new diagnosis). 5. Chronic back pain. . Surgical History Laminectomy . Family History Family history of hypertension and rheumatoid arthritis. . Social History Hx Alcohol Use: Yes (former alcoholic, quit 25 years ago) Hx Substance Use: Yes (IV heroin, smokes methamphetamines) Hx Tobacco Use: Yes Smoking Status: Current Every Day Smoker (1/2 PPD 10 years) Exam Vital Signs Vital Sign - Last Date Time Temp Pulse Resp B/P Pulse Ox O2 Delivery O2 Flow Rate FiO2 03/24/17 23:02 37.3 78 16 96/65 98 Room Air Intake and Output 03/24/17 03/24/17 03/25/17 Cumulative From/Thru 15:00 23:00 07:00 03/24/17 23:02 - 03/25/17 02:23 Intake Total 1000 ml 1000 ml Balance 1000 ml 1000 ml Intake IV Total 1000 ml 1000 ml Exam General: Middle-aged female lying in bed and in no acute distress, well- developed, well-nourished, appropriately interactive. HEENT: Normocephalic, atraumatic. External ears without defect. Pupils equal, round, and reactive to light. Anicteric sclerae, moist conjunctivae, and no lid lag. Oropharynx free of erythema and cobble stoning with moist mucosa. Neck: Supple with full range of motion. No jugular venous distension. No bruits. No lymphadenopathy or thyromegaly. Cardiovascular: Regular rate and rhythm with no murmurs, rubs, or gallops appreciated Pulmonary: Clear to auscultation bilaterally with no crackles, wheezes, or rhonchi. Normal respiratory effort with no use of accessory muscles. Abdomen: Soft, nontender, nondistended, bowel sounds present. No hepatosplenomegaly or masses appreciated. Extremities: No clubbing, cyanosis, or edema. Skin: Normal temperature, turgor, and texture; no rash, ulcers, or subcutaneous nodules appreciated. Psychiatric: Normal mood and flat affect. Alert and oriented to person, place, and time. Neurological: Cranial nerves: Pupils equal, round and reactive to light. Extraocular movements were smooth and conjugate with no evidence of nystagmus. Face appeared symmetrical. Sensation was intact to light touch and pin prick. Auditory sensation was intact to finger snap. Palatal elevation was symmetrical. Tongue was midline. Sternocleidomastoid and trapezii were +5/5 bilaterally. Motor: Normal tone and bulk. Muscle strength +5/5 on the bilateral upper and lower extremities. Sensation intact to light touch and pin prick bilaterally in upper and lower extremities. Deep tendon reflexes +2 and symmetrical. Babinski reflexes negative. Coordination: Finger to nose was intact without evidence of dysmetria. Gait was deferred. . Lab and Diagnostics Labs Item Value Date Time Magnesium Level 1.9 mg/dL 03/25/17 0150 Total Bilirubin 0.7 mg/dL 03/25/17 0150 Aspartate Amino Transf (AST/SGOT) 14 U/L 03/25/17 0150 Alanine Aminotransferase (ALT/SGPT) 21 U/L 03/25/17149 Alkaline Phosphatase 76 U/L 03/25/17149 Total Protein 7.7 g/dL 03/25/17149 Albumin 3.2 g/dL L 03/25/17149 Procalcitonin 0.16 ng/mL H 03/25/17149 Lactic Acid Level 0.9 mmol/L 03/25/17149 Result Diagram: 03/25/1714903/25/17149 Microbiology Blood cultures 2 pending. Blood culture from 03/22/2017 positive 1:4 with identification and sensitivities pending. . X-Rays, CTs and MRIs MRI CERVICAL SPINE WITH AND WITHOUT CONTRAST IMPRESSION: 1. No epidural abscess. 2. No discitis/osteomyelitis. 3. Multilevel degenerative disc disease. 4. Moderate C5-C6 central canal narrowing. Mild C6-C7 central canal narrowing. 5. Mild bilateral C3-C4 neural foraminal narrowing. Mild right and moderate left C5-C6 neural foraminal narrowing. Moderate right and mild left C6-C7 neural foraminal narrowing. Dictated by: Chioma Jalloh MD, PhD on 03/23/2017 at 11:06 MRI THORACIC SPINE WITH AND WITHOUT CONTRAST IMPRESSION: 1. No epidural abscess identified. There is mild, linear postcontrast enhancement in the posterior epidural space extending from T2-T8 vertebral body levels which may represent a reactive change associated with adjacent T2-T5 myositis or cellulitis or early epidural space infection. 2. Mild post contrast enhancement involving the dura paraspinous soft tissues are the level the T2-T5 vertebral bodies. Finding is nonspecific but can be seen in myositis/cellulitis. Please correlate with clinical data. 3. No evidence of discitis/osteomyelitis. Dictated by: Chioma Jalloh MD, PhD on 03/23/2017 at 9:56 MRI LUMBAR SPINE WITH AND WITHOUT CONTRAST IMPRESSION: 1. No evidence for epidural abscess. 2. No evidence of discitis/osteomyelitis. 3. Postsurgical changes. 4. Multilevel degenerative disease. 5. Multiple psychotropic. 6. Mild L1-L2, L2 and L3 and L4-L5 central canal narrowing. Moderate L3-L4 central canal narrowing. 7. Mild bilateral L1-L2 and L2-L3 neural foraminal narrowing. Moderate bilateral L3-L4 and L4-L5 neural foraminal narrowing. Dictated by: Chioma Jalloh MD, PhD on 03/23/2017 at 8:33 . Assessment & Plan Mary Ann ramirez is a 46-year-old female with a past medical history significant for bipolar disorder and IV drug use who presented to [facility] emergency Department for right mid-thoracic back pain. 1. Acute myositis, present on admission. Active. - Patient recently left AMA due to "panic attack" and re-presented with back pain without neurological deficit. - Continue serial neurologic evaluations at least twice a day focusing on muscle strength and bowel and bladder function. - Previous MRI of thoracic spine showed enhancement possibly indicative of myositis/cellulitis in an IV drug user, as above. - Ordered blood cultures 2, pending. Patient has a one positive blood culture out of the aerobic bottle with identification and sensitivities pending. Need to continue to order blood cultures on a daily basis until negative. - If the patient were to develop any new neurological deficits would need to order MRI of her entire spine. - Continue meropenem 2 g every 8 hours and vancomycin with dosing per pharmacist per ID. - Re-consult infectious disease tomorrow morning. - Will try to avoid opiates with her history of opiate addiction and ordered Suboxone for Dr. Light to manage as an outpatient. Chronic problems: 2. Bipolar disorder, present on admission. Presumed stable. - Not medically treated. 3. Depression and anxiety, present on admission. Presumed stable. - Not medically treated. 4. History of IV drug use, present on admission. - Encouraged cessation of IV drug use. - PRESS TENDER consult ordered. - Will try to avoid opiates with her history of opiate addiction and order Suboxone for signs of withdrawal once 24 hours past the time of last use. Dr. Light to manage Suboxone as an outpatient. At time of discharge, ideal option high priority hotline should be called at [phone] to set up an appointment with Dr. Light. 5. Tobacco dependence, present on admission. Stable. - Encouraged smoking cessation. - Ordered nicotine patch as needed. 6. Hepatitis C positive, present on admission. Presumed stable. - Patient recently tested positive at her last admission for hepatitis C. - Ordered genotype and RNA viral load, pending. PRN antiemetics: Zofran and Maalox. PRN bowel regimen: Senna and MiraLAX. PRN analgesics: Tylenol. Patient is admitted under inpatient status with expected length of stay greater than 2 midnights due to severity of presenting symptoms, risk of adverse event, and complexity of treatment plan. . VTE Prophylaxis: Sub-Q Heparin (Unfractionated) Resuscitation Status: DNR/DNI:Do Not Resuscitate/Intubate Attending Statement The patient was seen and examined together with house staff on 03/25/2017 and I agree with the history, exam and plan as outlined in the note above. Layla Lutz DO Mar 25, 2017 04:14 Liyah Rogel DO Mar 25, 2017 05:56
[2017-03-25 06:32] VITALS: BP 111/71; PULSE 64; RESP 18; O2SAT 100
[2017-03-25 06:55] VITALS: PULSE 65
--- NOTE | 2017-03-25 07:02 | PCM.CONPHA ---
Subjective Date of Service: Mar 25, 2017 Requesting Provider: Layla Lutz DO Back pain. . History of Present Illness abscess/cellulitis/possible early stage of osteomyelitis Reason for Pharmacy Consult: Vancomycin Dosing Objective Assessment/Plan Assessment/Plan Assessment/Plan A/ - 46 y/o ivdu female returned for worsening of possible myositis/cellulitis and Vancomycin initiated for empirical coverage. Note that she first admitted in 03/23 and went AMA on 03/24 - Afebrile. WBC is unremarkable at 7.6. Blood cultures are pending - In ED, received vancomycin iv loading dose 1250mg, and meropenem which to be continued - Wt: 68.7kg, ht: 165cm, BMI: 25.2 kg/m2, SCr: 0.64 mg/dL, estimated clearance~119ml/min, t1/2~7hrs, Vd~48L - ID consult ordered for in the morning, and IVF @100ml/hr P/ - Give vancomycin 1000mg iv q8h, 1st dose starts 6hrs after loading dose. Trough level ordered before 4th dose @0130 on 03/26 Pharmacy will continue to monitor and make necessary adjustment Thank you for consulting clinical pharmacy in the care of this patient Jackie Espino Mar 25, 2017 07:02
--- NOTE | 2017-03-25 08:00 | NUR ---
Resumed Care from Roxana
[2017-03-25] MEDS: Heparin 5,000 Unit/mL Inj SUBQ SCH ×2 (08:30→16:24)
[2017-03-25] MEDS: Vancomycin Dose per Pharmacist XX SCH (08:30)
[2017-03-25] MEDS: Vancomycin Inj 1,000 MG in IV Premix 1 EACH IV SCH ×2 (08:34→16:24)
[2017-03-25] MEDS ORDERED: Ketorolac 15 mg/mL Inj IVPUSH ONE ×2 (08:40→17:05)
--- NOTE | 2017-03-25 10:24 | NUR ---
PT eval not completed nsg hold for PT eval sec to poor pain control, work-up still pending RE: infection; nsg to f/u with MD RE: hold PT eval vs discharge PT eval and reorder when approp
[2017-03-25] MEDS: Meropenem Inj 2,000 MG in 0.9% Sodium Chloride 100 ML IV SCH ×2 (10:34→16:24)
[2017-03-25 14:28] VITALS: BP 109/68; PULSE 62; RESP 18; O2SAT 100
--- NOTE | 2017-03-25 14:37 | NUR ---
Pain/IVDU Pain controlled with PRN Morphine and Toradol x 1 dose of each. Patient prefers Toradol. Heat pack applied to back. After doses of pain meds patient was able to sleep thus far in shift. Patient admits to shooting heroin "last night" before coming in to hospital.
--- NOTE | 2017-03-25 16:28 | NUR ---
Social Work: Brief Note / Multidisciplinary Rounds Data: Pt is a 46 y/o female admitted for thoracic peraspinous pyomyositis. Pt's PCP is not listed, pt's insurance is [employer]. EMR reviewed, readmit score not listed. ordered FOUNTAIN ATTENDANT for CD assessment. FOUNTAIN ATTENDANT will complete assessment and initial assessment at a later time due to low staffing. MD states pt likely to remain in hospital for weeks for IVABX due to IV drug use hx. FOUNTAIN ATTENDANT will continue to follow. Assessment: Pt who is independent at baseline, IV drug use. Plan:FOUNTAIN ATTENDANT will complete assessment and initial assessment at a later time due to low staffing. MD states pt likely to remain in hospital for weeks for IVABX due to IV drug use hx. FOUNTAIN ATTENDANT will continue to follow. HANSA Parekh
[2017-03-25 22:17] VITALS: BP 133/84; PULSE 63; RESP 18; O2SAT 100
[2017-03-25] MEDS ORDERED: Vancomycin Serum Trough XX ONE (23:30)
[2017-03-26] MEDS: LORazepam 1 mg Tablet PO PRN ×3 (01:08→20:54)
[2017-03-26] MEDS: Meropenem Inj 2,000 MG in 0.9% Sodium Chloride 100 ML IV SCH ×3 (01:20→17:10)
[2017-03-26] MEDS: Heparin 5,000 Unit/mL Inj SUBQ SCH (01:20)
[2017-03-26] MEDS: Vancomycin Inj 1,000 MG in IV Premix 1 EACH IV SCH ×3 (02:13→17:11)
--- NOTE | 2017-03-26 02:54 | PCM.PHAPRO ---
Progress Date of Service: Mar 26, 2017 Requesting Provider: Layla Lutz DO Back pain. . Abscess due to IVDU - Trough level is 13.5 (drawn a little late than scheduled). However with consideration of drug accumulation risk, will continue with current regimen - vancomycin 1G iv q8. Cultures are still pending. Patient is comfortable and has no complain thus far. Jackie Summers Mar 26, 2017 02:54
[2017-03-26] MEDS: Vancomycin Dose per Pharmacist XX SCH (08:30)
[2017-03-26 09:19] VITALS: BP 120/74; PULSE 77; RESP 18; O2SAT 100
[2017-03-26 17:26] VITALS: BP 119/72; PULSE 68; RESP 18; O2SAT 100
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
[2017-03-26 19:50] VITALS: BP 110/70; PULSE 70; RESP 18; O2SAT 98
[2017-03-27] MEDS: Vancomycin Inj 1,000 MG in IV Premix 1 EACH IV SCH ×2 (00:25→09:29)
--- NOTE | 2017-03-27 00:57 | PCM.PNMED ---
Subjective Date of Service Mar 27, 2017 Subjective The patient states that the Toradol relieves her pain much more than narcotics do. She has no other new complaints. Exam Vital Signs Vital Sign - Last Date Time Temp Pulse Resp B/P Pulse Ox O2 Delivery O2 Flow Rate FiO2 03/26/17 19:50 36.9 70 18 110/70 98 Room Air Intake and Output 03/26/17 03/26/17 03/27/17 Cumulative From/Thru 15:00 23:00 07:00 03/24/17 23:02 - 03/26/17 18:45 Intake Total 2555 ml 7352 ml Output Total 3500 ml 3500 ml Balance -945 ml 3852 ml Intake Oral 1600 ml 4869 ml IV Total 955 ml 2483 ml Output Urine Total 3500 ml 3500 ml # Voids 6 # Bowel Movements 0 0 Exam General: Patient is lying supine in bed in no apparent distress. HEENT: Head is atraumatic and normocephalic. Eyes: Pupils are equally round and reactive to light and accommodation. Extraocular muscles are intact. Sclera are white, anicteric. Subconjunctival mucosa is pink. Ears and nose are unremarkable. Oropharynx: There is no mucosal lesions, there is no thrush, there is no pharyngitis. Neck: Is supple, there are no nodes, or masses or tenderness. Chest: Is clear to auscultation and percussion. There are no rales, rhonchi, wheezes or rubs. Heart: Rate, rhythm is regular. There is no new murmur, rub or gallop. Abdomen: Good bowel sounds are present. Abdomen is soft, nontender, no organomegaly or masses were appreciated. Extremities: Are symmetrical and well perfused. There is no edema, there is no cellulitis, no rash. There are innumerable well healed old scars on the upper extremities. Track ramos in both antecubital areas. Neurologic: There are no focal neurological deficits. Cranial nerves II through XII are intact. There are no sensory or motor deficits. Psychiatric: Patients mood is calm and shows no sign of agitation. Genital: Deferred Rectal: Deferred Lab and Diagnostics Result Diagram: 03/25/17 0150 03/25/17 0150 Microbiology Blood cultures 2 pending. Blood culture from 03/22/2017 positive 1:4 with identification and sensitivities pending. . X-Rays, CTs and MRIs MRI CERVICAL SPINE WITH AND WITHOUT CONTRAST IMPRESSION: 1. No epidural abscess. 2. No discitis/osteomyelitis. 3. Multilevel degenerative disc disease. 4. Moderate C5-C6 central canal narrowing. Mild C6-C7 central canal narrowing. 5. Mild bilateral C3-C4 neural foraminal narrowing. Mild right and moderate left C5-C6 neural foraminal narrowing. Moderate right and mild left C6-C7 neural foraminal narrowing. Dictated by: Chioma Jalloh MD, PhD on 03/23/2017 at 11:06 MRI THORACIC SPINE WITH AND WITHOUT CONTRAST IMPRESSION: 1. No epidural abscess identified. There is mild, linear postcontrast enhancement in the posterior epidural space extending from T2-T8 vertebral body levels which may represent a reactive change associated with adjacent T2-T5 myositis or cellulitis or early epidural space infection. 2. Mild post contrast enhancement involving the dura paraspinous soft tissues are the level the T2-T5 vertebral bodies. Finding is nonspecific but can be seen in myositis/cellulitis. Please correlate with clinical data. 3. No evidence of discitis/osteomyelitis. Dictated by: Chioma Jalloh MD, PhD on 03/23/2017 at 9:56 MRI LUMBAR SPINE WITH AND WITHOUT CONTRAST IMPRESSION: 1. No evidence for epidural abscess. 2. No evidence of discitis/osteomyelitis. 3. Postsurgical changes. 4. Multilevel degenerative disease. 5. Multiple psychotropic. 6. Mild L1-L2, L2 and L3 and L4-L5 central canal narrowing. Moderate L3-L4 central canal narrowing. 7. Mild bilateral L1-L2 and L2-L3 neural foraminal narrowing. Moderate bilateral L3-L4 and L4-L5 neural foraminal narrowing. Dictated by: Chioma Jalloh MD, PhD on 03/23/2017 at 8:33 . Assessment & Plan Mary Ann ramirez is a 46-year-old female with a past medical history significant for bipolar disorder and IV drug use who presented to [facility] emergency Department for right mid-thoracic back pain. 1. Acute myositis, present on admission. Active. - Patient recently left [facility] due to "panic attack" and re-presented with back pain without neurological deficit. - Continue serial neurologic evaluations at least twice a day focusing on muscle strength and bowel and bladder function. - Previous MRI of thoracic spine showed enhancement possibly indicative of myositis/cellulitis in an IV drug user, as above. - Ordered blood cultures 2, pending. Patient has a one positive blood culture out of the aerobic bottle with identification and sensitivities pending. Need to continue to order blood cultures on a daily basis until negative. - If the patient were to develop any new neurological deficits would need to order MRI of her entire spine. - Continue meropenem 2 g every 8 hours and vancomycin with dosing per pharmacist per ID. - Re-consult infectious disease tomorrow morning. - Will try to avoid opiates with her history of opiate addiction and ordered Suboxone for Dr. Light to manage as an outpatient. Chronic problems: 2. Bipolar disorder, present on admission. Presumed stable. - Not medically treated. 3. Depression and anxiety, present on admission. Presumed stable. - Not medically treated. 4. History of IV drug use, present on admission. - Encouraged cessation of IV drug use. - TRAIN RESERVATION CLERK consult ordered. - Will try to avoid opiates with her history of opiate addiction and order Suboxone for signs of withdrawal once 24 hours past the time of last use. Dr. Light to manage Suboxone as an outpatient. At time of discharge, ideal option high priority hotline should be called at [phone] to set up an appointment with Dr. Light. 5. Tobacco dependence, present on admission. Stable. - Encouraged smoking cessation. - Ordered nicotine patch as needed. 6. Hepatitis C positive, present on admission. Presumed stable. - Patient recently tested positive at her last admission for hepatitis C. - Ordered genotype and RNA viral load, pending. PRN antiemetics: Zofran and Maalox. PRN bowel regimen: Senna and MiraLAX. PRN analgesics: Tylenol. Disposition: Patient will likely be here for several weeks for IV antibiotic therapy. . Pain Evaluation: Adequate Pain Control VTE Prophylaxis: Sub-Q Heparin (Unfractionated) VTE Mechanical Devices: Venous Foot Pump Resuscitation Status: DNR/DNI:Do Not Resuscitate/Intubate Jose Deluca MD Mar 27, 2017 00:57
[2017-03-27] MEDS: Meropenem Inj 2,000 MG in 0.9% Sodium Chloride 100 ML IV SCH ×3 (01:31→16:49)
[2017-03-27] MEDS: LORazepam 1 mg Tablet PO PRN ×2 (05:13→11:07)
[2017-03-27 05:46] VITALS: BP 117/74; PULSE 66; RESP 18; O2SAT 97
--- NOTE | 2017-03-27 06:34 | NUR ---
Pain/Anxiety Patient reports that right shoulder pain remains at 4-6/10, worse at night, and Toradol works the best. Overnight, rotated Toradol, Morphine, and Tylenol with good effects. Patient using heating pad and repositioning independently. Patient also reported feeling anxious, and that she has had panic attacks and doesn't like to be "cooped up". Patient asked if she could have one of the staff take her outside for a little bit, but it was already 2100 and starting to get dark. Will pass onto day RN patient's request to go outside, assisted. Patient has been calm and cooperative, appreciative of care overnight.
[2017-03-27 07:33] LABS: Magnesium 1.8 mg/dL (1.6-2.6)
[2017-03-27] MEDS: Vancomycin Dose per Pharmacist XX SCH (08:30)
[2017-03-27 09:12] LABS: Mean Corpuscular Hemoglobin 28.4 pg (27.0-35.0); Mean Corpuscular Volume 86.1 fL (81-100)
[2017-03-27 09:13] LABS: BASOPHILS % (AUTO) 0.9 % (0-3); EOSINOPHILS % (AUTO) 11.9 % (0-5); NEUTROPHILS % (AUTO) 40.1 % (40-74); Platelet Count 280 bil/L (150-400)
[2017-03-27 13:14] VITALS: BP 118/72; PULSE 84; RESP 18; O2SAT 99
--- NOTE | 2017-03-27 15:23 | NUR ---
Social Work-attempted assessment/multidisciplinary rounds: Data:EMR Reviewed. Pt is on day 2 of hospitalization for pyomyositis per H&P. pt is not medically stable anticipate pt to have long hospitalization. SW attempted to see pt today to complete assessment, SW to follow up again tomorrow. has not yet placed order for CD assessment. Pt has a history of IV drug use. Per MD, pt is on IV abx and will be here for several weeks receiving these. SW will continue to follow. Assessment:Pt who is independent at baseline. Plan:SW to follow up and complete assessment when appropriate. SW awaiting MD order for CD assessment. SW will continue to follow. HANSA Levin
[2017-03-27] MEDS ORDERED: Vancomycin Serum Trough XX ONE (16:00)
--- NOTE | 2017-03-27 17:27 | PCM.PHAPRO ---
Progress Date of Service: Mar 27, 2017 Back pain. . Vancomycin management per pharmacy Indication: myositis Trough goal: 15-20 Pertinent info: - SCr up slightly today at 0.76. - Patient has been receiving vancomycin 1000 mg IV Q8H since 03/23. - Trough on 03/25 was 13.5. - Trough today was 23.2. Trough is supratherapeutic for unclear reasons. Will monitor SCr closely to see if it continues to increase. Will delay start of new vanco order to allow vanco levels to continue to fall to therapeutic trough. Decrease vancomycin dose to 750 mg Q8H starting tonight at 2030 (predicted trough of 18.1 based on pharmacokinetic modeling). Trough has been scheduled for 03/28/17 @1999. Pharmacy to continue to monitor and dose vancomycin. Thank you, Gurjit Castrejon Pharmacist Gurjit Castrejon Mar 27, 2017 17:27 Gurjit Castrejon Mar 27, 2017 17:27
--- NOTE | 2017-03-27 18:12 | NUR ---
Neuro Patient remains restless, one word answers, confused, sitter at bs for safety. PO pain medication helping with discomfort.
--- NOTE | 2017-03-27 18:15 | NUR ---
Shift Report Patient VSS, behavior appropriate, pleasant and calm. Receiving continued antibiotics.
[2017-03-27] MEDS: Vancomycin Inj 750 MG in 0.9% Sodium Chloride 250 ML IV SCH (20:03)
[2017-03-27 21:17] VITALS: BP 116/68; PULSE 78; RESP 18; O2SAT 96
[2017-03-28] MEDS: Meropenem Inj 2,000 MG in 0.9% Sodium Chloride 100 ML IV SCH ×3 (00:30→17:36)
--- NOTE | 2017-03-28 00:51 | PCM.PNMED ---
Subjective Date of Service Mar 28, 2017 Subjective The patient has no new complaints. She continues to complain of back pain. Exam Vital Signs Vital Sign - Last Date Time Temp Pulse Resp B/P Pulse Ox O2 Delivery O2 Flow Rate FiO2 03/27/17 21:17 36.8 78 18 116/68 96 Room Air Intake and Output 03/27/17 03/27/17 03/28/17 Cumulative From/Thru 15:00 23:00 07:00 03/24/17 23:02 - 03/27/17 18:29 Intake Total 1998 ml 45369 ml Output Total 350 ml 5450 ml Balance 1648 ml 4753 ml Intake Oral 1555 ml 6824 ml IV Total 443 ml 3379 ml Output Urine Total 350 ml 5450 ml # Voids 2 8 # Bowel Movements 0 Exam General: Patient is lying supine in bed in no apparent distress. HEENT: Head is atraumatic and normocephalic. Eyes: Pupils are equally round and reactive to light and accommodation. Extraocular muscles are intact. Sclera are white, anicteric. Subconjunctival mucosa is pink. Ears and nose are unremarkable. Oropharynx: There is no mucosal lesions, there is no thrush, there is no pharyngitis. Neck: Is supple, there are no nodes, or masses or tenderness. Chest: Is clear to auscultation and percussion. There are no rales, rhonchi, wheezes or rubs. Heart: Rate, rhythm is regular. There is no new murmur, rub or gallop. Abdomen: Good bowel sounds are present. Abdomen is soft, nontender, no organomegaly or masses were appreciated. Extremities: Are symmetrical and well perfused. There is no edema, there is no cellulitis, no rash. There are innumerable well healed old scars on the upper extremities. Track ramos in both antecubital areas. Neurologic: There are no focal neurological deficits. Cranial nerves II through XII are intact. There are no sensory or motor deficits. Psychiatric: Patients mood is calm and shows no sign of agitation. Genital: Deferred Rectal: Deferred Lab and Diagnostics Result Diagram: 03/27/17 0655 03/27/17 0655 Microbiology Blood cultures 2 pending. Blood culture from 03/22/2017 positive 1:4 with identification and sensitivities pending. . X-Rays, CTs and MRIs MRI CERVICAL SPINE WITH AND WITHOUT CONTRAST IMPRESSION: 1. No epidural abscess. 2. No discitis/osteomyelitis. 3. Multilevel degenerative disc disease. 4. Moderate C5-C6 central canal narrowing. Mild C6-C7 central canal narrowing. 5. Mild bilateral C3-C4 neural foraminal narrowing. Mild right and moderate left C5-C6 neural foraminal narrowing. Moderate right and mild left C6-C7 neural foraminal narrowing. Dictated by: Chioma Jalloh MD, PhD on 03/23/2017 at 11:06 MRI THORACIC SPINE WITH AND WITHOUT CONTRAST IMPRESSION: 1. No epidural abscess identified. There is mild, linear postcontrast enhancement in the posterior epidural space extending from T2-T8 vertebral body levels which may represent a reactive change associated with adjacent T2-T5 myositis or cellulitis or early epidural space infection. 2. Mild post contrast enhancement involving the dura paraspinous soft tissues are the level the T2-T5 vertebral bodies. Finding is nonspecific but can be seen in myositis/cellulitis. Please correlate with clinical data. 3. No evidence of discitis/osteomyelitis. Dictated by: Chioma Jalloh MD, PhD on 03/23/2017 at 9:56 MRI LUMBAR SPINE WITH AND WITHOUT CONTRAST IMPRESSION: 1. No evidence for epidural abscess. 2. No evidence of discitis/osteomyelitis. 3. Postsurgical changes. 4. Multilevel degenerative disease. 5. Multiple psychotropic. 6. Mild L1-L2, L2 and L3 and L4-L5 central canal narrowing. Moderate L3-L4 central canal narrowing. 7. Mild bilateral L1-L2 and L2-L3 neural foraminal narrowing. Moderate bilateral L3-L4 and L4-L5 neural foraminal narrowing. Dictated by: Chioma Jalloh MD, PhD on 03/23/2017 at 8:33 . Assessment & Plan Mary Ann ramirez is a 46-year-old female with a past medical history significant for bipolar disorder and IV drug use who presented to [facility] emergency Department for right mid-thoracic back pain. 1. Acute myositis, present on admission. Active. - Patient recently left [facility] due to "panic attack" and re-presented with back pain without neurological deficit. - Continue serial neurologic evaluations at least twice a day focusing on muscle strength and bowel and bladder function. - Previous MRI of thoracic spine showed enhancement possibly indicative of myositis/cellulitis in an IV drug user, as above. - Ordered blood cultures 2, pending. Patient has a one positive blood culture out of the aerobic bottle with identification and sensitivities pending. Need to continue to order blood cultures on a daily basis until negative. - If the patient were to develop any new neurological deficits would need to order MRI of her entire spine. - Continue meropenem 2 g every 8 hours and vancomycin with dosing per pharmacist per ID. - Re-consult infectious disease when available. - Will try to avoid opiates with her history of opiate addiction and ordered Suboxone for Dr. Light to manage as an outpatient. Chronic problems: 2. Bipolar disorder, present on admission. Presumed stable. - Not medically treated. 3. Depression and anxiety, present on admission. Presumed stable. - Not medically treated. 4. History of IV drug use, present on admission. - Encouraged cessation of IV drug use. - CASH CROP FARMER consult ordered. - Will try to avoid opiates with her history of opiate addiction and order Suboxone for signs of withdrawal once 24 hours past the time of last use. Dr. Light to manage Suboxone as an outpatient. At time of discharge, ideal option high priority hotline should be called at [phone] to set up an appointment with Dr. Light. 5. Tobacco dependence, present on admission. Stable. - Encouraged smoking cessation. - Ordered nicotine patch as needed. 6. Hepatitis C positive, present on admission. Presumed stable. - Patient recently tested positive at her last admission for hepatitis C. - Ordered genotype and RNA viral load, pending. PRN antiemetics: Zofran and Maalox. PRN bowel regimen: Senna and MiraLAX. PRN analgesics: Tylenol. Disposition: Patient will likely be here for several weeks for IV antibiotic therapy. . Pain Evaluation: Adequate Pain Control VTE Prophylaxis: Sub-Q Heparin (Unfractionated) VTE Mechanical Devices: Venous Foot Pump Resuscitation Status: DNR/DNI:Do Not Resuscitate/Intubate Jose Deluca MD Mar 28, 2017 00:51
[2017-03-28] MEDS: LORazepam 1 mg Tablet PO PRN ×2 (01:02→14:13)
--- NOTE | 2017-03-28 03:47 | NUR ---
activity Pt up till 0300, not sleeping well, spouse in room for the night. Pt continues to behave appropriately, no issues. Pt needed new IV asked for Ativan to be given to relieve anxiety. asking for pain medication at appropriate times. Will continue to monitor.
[2017-03-28 05:33] VITALS: BP 126/75; PULSE 80; RESP 18; O2SAT 96
[2017-03-28] MEDS: Vancomycin Inj 750 MG in 0.9% Sodium Chloride 250 ML IV SCH ×3 (05:39→20:58)
--- NOTE | 2017-03-28 11:20 | NUR ---
Social Work-multidisciplinary rounds: Per MD, pt will likely be in the hospital for at least a month on IV abx. SW awaiting MD order for CD consult. SW to complete initial assessment today. HANSA Levin
[2017-03-28] MEDS: Vancomycin Dose per Pharmacist XX SCH (11:21)
[2017-03-28] MEDS ORDERED: Potassium Chloride 20 mEq SR Tablet PO ONE (13:10)
[2017-03-28 14:21] VITALS: BP 129/83; RESP 17; O2SAT 100
--- NOTE | 2017-03-28 15:57 | DRSVH ---
[facility] [address] [place] [address] Echocardiogram Report Name: KAYLENE GALLARDO ate: 03/28/2017 Height: 65 in Hospital Exam Location: [facility] Weight: 160 lb Gender: Female BSA: 1.8 m2 : 1970 Age: 46 yrs BP: 126/75 mmHg Reason For Study: Possible vegetation Ordering Physician: HOSPITALIST [facility] Performed By: Hannah Landon Referring Physician: Jimbo Hinojosa Interpretation Summary The left ventricle is normal in size. Left ventricular systolic function is normal without focal wall motion abnormalities. The ejection fraction is estimated to be 60-65%. Assessment of diastolic parameters indicates normal left ventricular diastolic function and normal filling pressures. The right ventricle is normal in size, thickness and function. The right ventricular systolic function is normal. The right ventricular systolic pressure is estimated at 22 mmHg assuming a right atrial pressure of 8 mm Hg. Borderline left atrial enlargement. The right atrium is normal in size. There is no significant valvular heart disease. No vegetative masses are visualized on this transthoracic echocardiogram. The aortic root is normal size. Procedure: A two-dimensional transthoracic echocardiogram with color flow and Doppler was performed. The study quality was technically adequate. There is no prior echocardiogram noted for this patient. The patient was in normal sinus rhythm during the exam. Left Ventricle: The left ventricle is normal in size. Left ventricular wall thickness is normal. Left ventricular systolic function is normal without focal wall motion abnormalities. The ejection fraction is estimated to be 60- 65%. Assessment of diastolic parameters indicates normal left ventricular diastolic function and normal filling pressures. Right Ventricle: The right ventricle is normal in size, thickness and function. The right ventricular systolic function is normal. Atria: Borderline left atrial enlargement. The right atrium is normal in size. The interatrial septum is intact with no evidence for an atrial septal defect. Mitral Valve: The mitral valve leaflets appear mildly thickened, but open well. There is mild mitral annular calcification. There is trace mitral regurgitation. Aortic Valve: The aortic valve is trileaflet. The aortic valve opens well. The aortic valve is slightly calcified. There is no aortic regurgitation. Tricuspid Valve: The tricuspid valve leaflets are thin and pliable. There is trace tricuspid regurgitation. The right ventricular systolic pressure is estimated at 22 mmHg assuming a right atrial pressure of 8 mm Hg. Pulmonic Valve: The pulmonic valve is normal in structure and function. There is trace pulmonic regurgitation. There is no significant valvular heart disease. Great Vessels: The aortic root is normal size. The ascending aorta is normal in size. The IVC is of normal diameter and collapses less than 50% with a sniff. This suggests a right atrial pressure of 8 mm Hg. Pericardium/ Pleura There is no pericardial effusion. There is no pleural effusion. MMode/2D Measurements & Calculations LVIDd: 4.8 cm RA long axis LVOT diam LVIDs: 3.2 cm LA A2 area: 18.6 cm FS: 32.0 % LA A4 area: 19.9 cm RA area Ao root diam EPSS: 0.27 cm LA length (vol): 5.0 cm IVSd: 0.78 cm LA vol: 62.8 ml : 12.0 cm asc Aorta LVPWd: 0.71 cm LA vol index RA vol: 29.2 mlDiam: 3.0 cm RA : 16.2 mm2 IVC diam: 2.0 cm LV fierro. diameter/BSA LV sys. diameter/BSA TAPSE: 2.7 cm (cm/m^2): 2.6 (cm/m^2): 1.8 Doppler Measurements & Calculations Ao V2 max MV E max ricardo MV E/A: 1.3 TR max ricardo : 121.4 cm/sec : 73.5 cm/sec Med Peak E' Ricardo : 191.2 cm/sec Ao max P.9 mmHg MV A max ricardo TR max PG Ao mean P.7 mmHg : 56.9 cm/sec E/E' med: 7.4 : 14.7 mmHg LVOT Max Ricardo Lat Peak E' Ricardo PA V2 max : 101.7 cm/sec : 69.4 cm/sec E/E' lat: 5.0 PA mean PG ALEA(I,D): 2.9 cm E/e' average: 6.2 : 1.1 mmHg sev ratio: 0.89 MV dec time: 0.16 sec Ao V2 mean LV V1 max PG PA V2 mean : 74.3 cm/sec : 49.3 cm/sec Ao V2 VTI LV V1 VTI: 21.2 cm PA pr(Accel) : 29.1 mmHg ALEA(V,D): 2.7 cm2 ALEA indexed to BSA (cm^2/m^2): 1.6 Reading Physician:PM
--- NOTE | 2017-03-28 16:23 | NUR ---
Social Work-attempted CD assessment: Data:EMR Reviewed. order received for CD assessment. SW attempted to meet with pt to complete, but pt not in the room. SW to follow up tomorrow with pt regarding CD assessment. Per , pt to be here for another month receiving IV abx. SW will continue to follow. Assessment:Pt who is independent at baseline. Plan:Pt to remain here at [facility] for next month regarding IV abx. SW to follow up with CD assessment tomorrow. SW will continue to follow. HANSA Levin
--- NOTE | 2017-03-28 18:22 | NUR ---
Shift Report Patient had a good day, got to shower and spend time with in room. Antibiotics continue.
[2017-03-28] MEDS ORDERED: Vancomycin Serum Trough XX ONE (20:00)
[2017-03-28 20:40] VITALS: BP 145/92; PULSE 74; RESP 17; O2SAT 100
--- NOTE | 2017-03-28 23:04 | PCM.PHAPRO ---
Progress Date of Service: Mar 28, 2017 Back pain. . Vancomycin management per pharmacy Age: 46 yo F Indication: Myositis Trough goal: 15-20 Labs: WBC: 7.6->5.3 SrCr: 0.73 mg/dL ESR: 58 CRP: 10.58 Vancomycin Trough: 18.2 mg/dL Est CrCl: ~110 mL/min Vitals: Temp: Afebrile HR: 70s BP: Maintaining/high Micro: 1/2 blood cx positive for coag neg staph on 03/22 (likely contaminant and not true organism) Recommendation: Trough is therapeutic at 18.2 mg/dL. Recommend continuing vancomycin at 750 mg IV Q8h. Pharmacy to continue to monitor and adjust dose as needed. Thank You, Charity Avery, Pharm D. Charity Avery Mar 28, 2017 23:04
[2017-03-29] MEDS: Meropenem Inj 2,000 MG in 0.9% Sodium Chloride 100 ML IV SCH ×3 (00:32→17:51)
--- NOTE | 2017-03-29 01:15 | PCM.PNMED ---
Subjective Date of Service Mar 29, 2017 Subjective Patient is feeling a little bit better today. She has no new complaints. She has no fever, no chills, no diaphoresis. Exam Vital Signs Vital Sign - Last Date Time Temp Pulse Resp B/P Pulse Ox O2 Delivery O2 Flow Rate FiO2 03/28/17 20:40 36.4 74 17 145/92 100 Room Air Intake and Output 03/28/17 03/28/17 03/29/17 Cumulative From/Thru 15:00 23:00 07:00 03/24/17 23:02 - 03/28/17 18:33 Intake Total 600 ml 74856 ml Output Total 6450 ml Balance 600 ml 4503 ml Intake Oral 600 ml 7574 ml IV Total 3379 ml Output Urine Total 6450 ml # Voids 2 10 # Bowel Movements 0 Exam General: Patient is lying supine in bed in no apparent distress. HEENT: Head is atraumatic and normocephalic. Eyes: Pupils are equally round and reactive to light and accommodation. Extraocular muscles are intact. Sclera are white, anicteric. Subconjunctival mucosa is pink. Ears and nose are unremarkable. Oropharynx: There is no mucosal lesions, there is no thrush, there is no pharyngitis. Neck: Is supple, there are no nodes, or masses or tenderness. Chest: Is clear to auscultation and percussion. There are no rales, rhonchi, wheezes or rubs. Heart: Rate, rhythm is regular. There is no new murmur, rub or gallop. Abdomen: Good bowel sounds are present. Abdomen is soft, nontender, no organomegaly or masses were appreciated. Extremities: Are symmetrical and well perfused. There is no edema, there is no cellulitis, no rash. There are innumerable well healed old scars on the upper extremities. Track ramos in both antecubital areas. Neurologic: There are no focal neurological deficits. Cranial nerves II through XII are intact. There are no sensory or motor deficits. Psychiatric: Patients mood is calm and shows no sign of agitation. Genital: Deferred Rectal: Deferred Lab and Diagnostics Result Diagram: 03/27/17 0655 03/28/17 0647 Microbiology Blood cultures 2 pending. Blood culture from 03/22/2017 positive 1:4 with identification and sensitivities pending. Wound culture from left hand abscess performed at [facility] in [place] on 02/27/2017 collected at 1521 hrs. culture wound smear #[id number] showed heavy growth of Staphylococcus aureus methicillin-resistant Staphylococcus aureus. Susceptibilities show resistance to azithromycin ciprofloxacin erythromycin levofloxacin oxacillin and trimethoprim sulfamethoxazole the MRSA is sensitive to clindamycin and tetracycline and vancomycin. . X-Rays, CTs and MRIs MRI CERVICAL SPINE WITH AND WITHOUT CONTRAST IMPRESSION: 1. No epidural abscess. 2. No discitis/osteomyelitis. 3. Multilevel degenerative disc disease. 4. Moderate C5-C6 central canal narrowing. Mild C6-C7 central canal narrowing. 5. Mild bilateral C3-C4 neural foraminal narrowing. Mild right and moderate left C5-C6 neural foraminal narrowing. Moderate right and mild left C6-C7 neural foraminal narrowing. Dictated by: Chioma Jalloh MD, PhD on 03/23/2017 at 11:06 MRI THORACIC SPINE WITH AND WITHOUT CONTRAST IMPRESSION: 1. No epidural abscess identified. There is mild, linear postcontrast enhancement in the posterior epidural space extending from T2-T8 vertebral body levels which may represent a reactive change associated with adjacent T2-T5 myositis or cellulitis or early epidural space infection. 2. Mild post contrast enhancement involving the dura paraspinous soft tissues are the level the T2-T5 vertebral bodies. Finding is nonspecific but can be seen in myositis/cellulitis. Please correlate with clinical data. 3. No evidence of discitis/osteomyelitis. Dictated by: Chioma Jalloh MD, PhD on 03/23/2017 at 9:56 MRI LUMBAR SPINE WITH AND WITHOUT CONTRAST IMPRESSION: 1. No evidence for epidural abscess. 2. No evidence of discitis/osteomyelitis. 3. Postsurgical changes. 4. Multilevel degenerative disease. 5. Multiple psychotropic. 6. Mild L1-L2, L2 and L3 and L4-L5 central canal narrowing. Moderate L3-L4 central canal narrowing. 7. Mild bilateral L1-L2 and L2-L3 neural foraminal narrowing. Moderate bilateral L3-L4 and L4-L5 neural foraminal narrowing. Dictated by: Chioma Jalloh MD, PhD on 03/23/2017 at 8:33 . Cardiac Echo Impressions Echocardiogram Report Name: MARY ANN RAMIREZ Kori Royal ate: 03/28/2017 Height: 65 in Hospital Exam Location: [facility] Weight: 160 lb Gender: Female BSA: 1.8 m2 : 1970 Age: 46 yrs BP: 126/75 mmHg Reason For Study: Possible vegetation Ordering Physician: [facility] Performed By: Hannah Landon Referring Physician: Jimbo Hinojosa Interpretation Summary The left ventricle is normal in size. Left ventricular systolic function is normal without focal wall motion abnormalities. The ejection fraction is estimated to be 60-65%. Assessment of diastolic parameters indicates normal left ventricular diastolic function and normal filling pressures. The right ventricle is normal in size, thickness and function. The right ventricular systolic function is normal. The right ventricular systolic pressure is estimated at 22 mmHg assuming a right atrial pressure of 8 mm Hg. Borderline left atrial enlargement. The right atrium is normal in size. There is no significant valvular heart disease. No vegetative masses are visualized on this transthoracic echocardiogram. The aortic root is normal size. Assessment & Plan Mary Ann ramirez is a 46-year-old female with a past medical history significant for bipolar disorder and IV drug use who presented to [facility] emergency Department for right mid-thoracic back pain. 1. Acute myositis, present on admission. Active. - Patient recently left AMA due to "panic attack" and re-presented with back pain without neurological deficit. - Continue serial neurologic evaluations at least twice a day focusing on muscle strength and bowel and bladder function. - Previous MRI of thoracic spine showed enhancement possibly indicative of myositis/cellulitis in an IV drug user, as above. - Ordered blood cultures 2, pending. Patient has a one positive blood culture out of the aerobic bottle with identification and sensitivities pending. Need to continue to order blood cultures on a daily basis until negative. Wound culture from an abscess found on left hand at [facility] in [place] obtained on 02/27/2017 was positive for MRSA. - If the patient were to develop any new neurological deficits would need to order MRI of her entire spine. - Continue meropenem 2 g every 8 hours for now and vancomycin with dosing per pharmacist per ID. - Re-consult infectious disease when available. - Will try to avoid opiates with her history of opiate addiction and ordered Suboxone for Dr. Light to manage as an outpatient. Chronic problems: 2. Bipolar disorder, present on admission. Presumed stable. - Not medically treated. 3. Depression and anxiety, present on admission. Presumed stable. - Not medically treated. 4. History of IV drug use, present on admission. - Encouraged cessation of IV drug use. - EXTRACTING MACHINE OPERATOR consult ordered. - Will try to avoid opiates with her history of opiate addiction and order Suboxone for signs of withdrawal once 24 hours past the time of last use. Dr. Light to manage Suboxone as an outpatient. At time of discharge, ideal option high priority hotline should be called at [phone] to set up an appointment with Dr. Light. 5. Tobacco dependence, present on admission. Stable. - Encouraged smoking cessation. - Ordered nicotine patch as needed. 6. Hepatitis C positive, present on admission. Presumed stable. - Patient recently tested positive at her last admission for hepatitis C. - Ordered genotype and RNA viral load, pending. PRN antiemetics: Zofran and Maalox. PRN bowel regimen: Senna and MiraLAX. PRN analgesics: Tylenol. Disposition: Patient will likely be here for several weeks for IV antibiotic therapy. . Pain Evaluation: Adequate Pain Control VTE Prophylaxis: Sub-Q Heparin (Unfractionated) VTE Mechanical Devices: Venous Foot Pump Resuscitation Status: DNR/DNI:Do Not Resuscitate/Intubate Jose Deluca MD Mar 29, 2017 01:15
[2017-03-29 04:57] VITALS: BP 138/84; PULSE 85; RESP 18; O2SAT 99
[2017-03-29] MEDS: Vancomycin Inj 750 MG in 0.9% Sodium Chloride 250 ML IV SCH ×3 (05:08→21:03)
[2017-03-29] MEDS: Vancomycin Dose per Pharmacist XX SCH (08:30)
[2017-03-29 13:30] VITALS: BP 119/73; PULSE 82; RESP 18; O2SAT 100
[2017-03-29 21:20] VITALS: BP 103/69; PULSE 77; RESP 16; O2SAT 100
--- NOTE | 2017-03-29 23:38 | PCM.PNMED ---
Subjective Date of Service Mar 29, 2017 Subjective The patient is feeling a little bit better. She is in better spirits. She has less back pain. She has no new complaints. She is tolerating her IV antibiotics well. Exam Vital Signs Vital Sign - Last Date Time Temp Pulse Resp B/P Pulse Ox O2 Delivery O2 Flow Rate FiO2 03/29/17 21:20 37.1 77 16 103/69 100 Room Air Intake and Output 03/28/17 03/28/17 03/29/17 Cumulative From/Thru 15:00 23:00 07:00 03/24/17 23:02 - 03/29/17 05:21 Intake Total 600 ml 800 ml 84863 ml Output Total 6450 ml Balance 600 ml 800 ml 5303 ml Intake Oral 600 ml 800 ml 8374 ml IV Total 3379 ml Output Urine Total 6450 ml # Voids 2 6 16 # Bowel Movements 0 0 Exam General: Patient is lying supine in bed in no apparent distress. HEENT: Head is atraumatic and normocephalic. Eyes: Pupils are equally round and reactive to light and accommodation. Extraocular muscles are intact. Sclera are white, anicteric. Subconjunctival mucosa is pink. Ears and nose are unremarkable. Oropharynx: There is no mucosal lesions, there is no thrush, there is no pharyngitis. Neck: Is supple, there are no nodes, or masses or tenderness. Chest: Is clear to auscultation and percussion. There are no rales, rhonchi, wheezes or rubs. Heart: Rate, rhythm is regular. There is no new murmur, rub or gallop. Abdomen: Good bowel sounds are present. Abdomen is soft, nontender, no organomegaly or masses were appreciated. Extremities: Are symmetrical and well perfused. There is no edema, there is no cellulitis, no rash. There are innumerable well healed old scars on the upper extremities. Track ramos in both antecubital areas. Neurologic: There are no focal neurological deficits. Cranial nerves II through XII are intact. There are no sensory or motor deficits. Psychiatric: Patients mood is calm and shows no sign of agitation. Genital: Deferred Rectal: Deferred Lab and Diagnostics Result Diagram: 03/27/17 0655 03/29/17 0647 Microbiology Blood cultures 2 pending. Blood culture from 03/22/2017 positive 1:4 with identification and sensitivities pending. Wound culture from left hand abscess performed at [facility] in [place] on 02/27/2017 collected at 1521 hrs. culture wound smear #[id number] showed heavy growth of Staphylococcus aureus methicillin-resistant Staphylococcus aureus. Susceptibilities show resistance to azithromycin ciprofloxacin erythromycin levofloxacin oxacillin and trimethoprim sulfamethoxazole the MRSA is sensitive to clindamycin and tetracycline and vancomycin. . X-Rays, CTs and MRIs MRI CERVICAL SPINE WITH AND WITHOUT CONTRAST IMPRESSION: 1. No epidural abscess. 2. No discitis/osteomyelitis. 3. Multilevel degenerative disc disease. 4. Moderate C5-C6 central canal narrowing. Mild C6-C7 central canal narrowing. 5. Mild bilateral C3-C4 neural foraminal narrowing. Mild right and moderate left C5-C6 neural foraminal narrowing. Moderate right and mild left C6-C7 neural foraminal narrowing. Dictated by: Chioma Jalloh MD, PhD on 03/23/2017 at 11:06 MRI THORACIC SPINE WITH AND WITHOUT CONTRAST IMPRESSION: 1. No epidural abscess identified. There is mild, linear postcontrast enhancement in the posterior epidural space extending from T2-T8 vertebral body levels which may represent a reactive change associated with adjacent T2-T5 myositis or cellulitis or early epidural space infection. 2. Mild post contrast enhancement involving the dura paraspinous soft tissues are the level the T2-T5 vertebral bodies. Finding is nonspecific but can be seen in myositis/cellulitis. Please correlate with clinical data. 3. No evidence of discitis/osteomyelitis. Dictated by: Chioma Jalloh MD, PhD on 03/23/2017 at 9:56 MRI LUMBAR SPINE WITH AND WITHOUT CONTRAST IMPRESSION: 1. No evidence for epidural abscess. 2. No evidence of discitis/osteomyelitis. 3. Postsurgical changes. 4. Multilevel degenerative disease. 5. Multiple psychotropic. 6. Mild L1-L2, L2 and L3 and L4-L5 central canal narrowing. Moderate L3-L4 central canal narrowing. 7. Mild bilateral L1-L2 and L2-L3 neural foraminal narrowing. Moderate bilateral L3-L4 and L4-L5 neural foraminal narrowing. Dictated by: Chioma Jalloh MD, PhD on 03/23/2017 at 8:33 . Cardiac Echo Impressions Echocardiogram Report Name: MARY ANN GALLARDO Kori Royal ate: 03/28/2017 Height: 65 in Hospital Exam Location: [facility] Weight: 160 lb Gender: Female BSA: 1.8 m2 : 1970 Age: 46 yrs BP: 126/75 mmHg Reason For Study: Possible vegetation Ordering Physician: [facility] Performed By: Hannah Landon Referring Physician: Jimbo Hinojosa Interpretation Summary The left ventricle is normal in size. Left ventricular systolic function is normal without focal wall motion abnormalities. The ejection fraction is estimated to be 60-65%. Assessment of diastolic parameters indicates normal left ventricular diastolic function and normal filling pressures. The right ventricle is normal in size, thickness and function. The right ventricular systolic function is normal. The right ventricular systolic pressure is estimated at 22 mmHg assuming a right atrial pressure of 8 mm Hg. Borderline left atrial enlargement. The right atrium is normal in size. There is no significant valvular heart disease. No vegetative masses are visualized on this transthoracic echocardiogram. The aortic root is normal size. Assessment & Plan Mary Ann Gallardo is a 46-year-old female with a past medical history significant for bipolar disorder and IV drug use who presented to [facility] emergency Department for right mid-thoracic back pain. The patient was admitted to hospitalist service for further evaluation and treatment. 1. Acute myositis, present on admission. Active. - Patient recently left AMA due to "panic attack" and re-presented with back pain without neurological deficit. - Continue serial neurologic evaluations at least twice a day focusing on muscle strength and bowel and bladder function. - MRI of thoracic spine showed: "No epidural abscess identified. There is mild, linear postcontrast enhancement in the posterior epidural space extending from T2-T8 vertebral body levels which may represent a reactive change associated with adjacent T2-T5 myositis or cellulitis or early epidural space infection. Mild post contrast enhancement involving the dura paraspinous soft tissues are the level the T2-T5 vertebral bodies. Finding is nonspecific but can be seen in myositis/cellulitis." - Ordered blood cultures 2, pending. Patient has a one positive blood culture out of the aerobic bottle with identification and sensitivities pending. Need to continue to order blood cultures on a daily basis until negative. Wound culture from an abscess found on left hand at [facility] in [place] obtained on 02/27/2017 was positive for MRSA. - If the patient were to develop any new neurological deficits would need to order MRI of her entire spine. - We will continue vancomycin IV per pharmacy - Continue meropenem 2 g every 8 hours for now ending final culture results. May consider discontinuing soon. - Re-consult infectious disease when available. - Will try to avoid opiates with her history of opiate addiction and ordered Suboxone for Dr. Light to manage as an outpatient. Chronic problems: 2. Bipolar disorder, present on admission. Presumed stable. - Not medically treated. 3. Depression and anxiety, present on admission. Presumed stable. - Not medically treated. 4. History of IV drug use, present on admission. - Encouraged cessation of IV drug use. - DESIGNATED BROKER consult ordered. - Will try to avoid opiates with her history of opiate addiction and order Suboxone for signs of withdrawal once 24 hours past the time of last use. Dr. Light to manage Suboxone as an outpatient. At time of discharge, ideal option high priority hotline should be called at [phone] to set up an appointment with Dr. Light. 5. Tobacco dependence, present on admission. Stable. - Encouraged smoking cessation. - Ordered nicotine patch as needed. 6. Hepatitis C positive, present on admission. Presumed stable. - Patient recently tested positive at her last admission for hepatitis C. - Ordered genotype and RNA viral load, pending. PRN antiemetics: Zofran and Maalox. PRN bowel regimen: Senna and MiraLAX. PRN analgesics: Tylenol. Disposition: Patient will likely be here for several weeks for IV antibiotic therapy. Once stable may consider transfer to a swing bed unit. . Pain Evaluation: Adequate Pain Control VTE Prophylaxis: Sub-Q Heparin (Unfractionated) VTE Mechanical Devices: Venous Foot Pump Resuscitation Status: DNR/DNI:Do Not Resuscitate/Intubate Jose Deluca MD Mar 29, 2017 23:38
[2017-03-30] MEDS: Meropenem Inj 2,000 MG in 0.9% Sodium Chloride 100 ML IV SCH ×2 (01:46→12:18)
[2017-03-30] MEDS ORDERED: Vancomycin Serum Trough XX ONE (04:00)
[2017-03-30] MEDS: Vancomycin Inj 750 MG in 0.9% Sodium Chloride 250 ML IV SCH ×3 (05:13→22:26)
[2017-03-30 05:40] LABS: BASOPHILS % (AUTO) 0.8 % (0-3); EOSINOPHILS % (AUTO) 14.6 % (0-5); MONOCYTES % (AUTO) 10.5 % (4-12); Mean Corpuscular Hemoglobin 28.1 pg (27.0-35.0); Mean Corpuscular Volume 85.9 fL (81-100); NEUTROPHILS % (AUTO) 38.3 % (40-74); Platelet Count 397 bil/L (150-400)
[2017-03-30 05:48] VITALS: BP 107/67; PULSE 74; RESP 16; O2SAT 98
[2017-03-30 06:00] LABS: ERYTHROCYTE SEDIMENTATION RATE 66 mm/hr (0-32)
[2017-03-30 06:40] LABS: Magnesium 2.4 mg/dL (1.6-2.6)
--- NOTE | 2017-03-30 07:08 | PCM.PHAPRO ---
Progress Date of Service: Mar 30, 2017 Back pain. . VANCOMYCIN MANAGEMENT A\ 46YO F MYOSITIS/CELLULITIS VANCOMYCIN GOAL=15-20 VANCOMYCIN TROUGH= 19.9 SCR=0.82 PROCAL=0.09 WBC=5.1 Pt voided 10X yesterday P\ Will continue vancomycin 750mg IV Q8H and check another trough 03/31 0400 t madhu sure pt is not accumulating Waqas Cordon [facility] Mar 30, 2017 07:08
[2017-03-30] MEDS: Vancomycin Dose per Pharmacist XX SCH (08:30)
[2017-03-30 12:56] VITALS: BP 108/71; PULSE 74; RESP 16; O2SAT 99
--- NOTE | 2017-03-30 15:47 | NUR ---
Swing Bed Unit Referral : Faxed referral to Karen Parra at [facility] Swing Bed Unit [phone]
[2017-03-30 22:28] VITALS: BP 114/69; PULSE 77; RESP 16; O2SAT 99
[2017-03-31] MEDS: Meropenem Inj 2,000 MG in 0.9% Sodium Chloride 100 ML IV SCH ×4 (00:07→23:42)
--- NOTE | 2017-03-31 00:32 | PCM.PNMED ---
Subjective Date of Service Mar 31, 2017 Subjective The patient is complaining of more back pain today. However, her nurse Homero states that he has only given her one shot of morphine today. When I pointed this out to the patient she realized that that may be why she is having more pain as she has not been taking as much pain medicine to control it. Otherwise she is feeling better and has no new complaints. Exam Vital Signs Vital Sign - Last Date Time Temp Pulse Resp B/P Pulse Ox O2 Delivery O2 Flow Rate FiO2 03/30/17 22:28 36.7 77 16 114/69 99 Room Air Intake and Output 03/30/17 03/30/17 03/31/17 Cumulative From/Thru 15:00 23:00 07:00 03/24/17 23:02 - 03/30/17 18:19 Intake Total 2667 ml 23278 ml Output Total 6450 ml Balance 2667 ml 63235 ml Intake Oral 956 ml 56954 ml IV Total 1711 ml 5090 ml Output Urine Total 6450 ml # Voids 4 25 # Bowel Movements 0 0 Exam General: Patient is lying supine in bed in no apparent distress. Her affect is more flat today. HEENT: Head is atraumatic and normocephalic. Eyes: Pupils are equally round and reactive to light and accommodation. Extraocular muscles are intact. Sclera are white, anicteric. Subconjunctival mucosa is pink. Ears and nose are unremarkable. Oropharynx: There is no mucosal lesions, there is no thrush, there is no pharyngitis. Neck: Is supple, there are no nodes, or masses or tenderness. Chest: Is clear to auscultation and percussion. There are no rales, rhonchi, wheezes or rubs. Heart: Rate, rhythm is regular. There is no new murmur, rub or gallop. Abdomen: Good bowel sounds are present. Abdomen is soft, nontender, no organomegaly or masses were appreciated. Extremities: Are symmetrical and well perfused. There is no edema, there is no cellulitis, no rash. There are innumerable well healed old scars on the upper extremities. Track ramos in both antecubital areas. Neurologic: There are no focal neurological deficits. Cranial nerves II through XII are intact. There are no sensory or motor deficits. Psychiatric: Patients mood is calm and shows no sign of agitation. Again her affect is flat today. Genital: Deferred Rectal: Deferred Lab and Diagnostics Result Diagram: 03/30/17 0505 03/30/17 0505 Microbiology Blood cultures 2 pending. Blood culture from 03/22/2017 positive 1:4 with identification and sensitivities pending. Wound culture from left hand abscess performed at [facility] in [place] on 02/27/2017 collected at 1521 hrs. culture wound smear #[id number] showed heavy growth of Staphylococcus aureus methicillin-resistant Staphylococcus aureus. Susceptibilities show resistance to azithromycin ciprofloxacin erythromycin levofloxacin oxacillin and trimethoprim sulfamethoxazole the MRSA is sensitive to clindamycin and tetracycline and vancomycin. . X-Rays, CTs and MRIs MRI CERVICAL SPINE WITH AND WITHOUT CONTRAST IMPRESSION: 1. No epidural abscess. 2. No discitis/osteomyelitis. 3. Multilevel degenerative disc disease. 4. Moderate C5-C6 central canal narrowing. Mild C6-C7 central canal narrowing. 5. Mild bilateral C3-C4 neural foraminal narrowing. Mild right and moderate left C5-C6 neural foraminal narrowing. Moderate right and mild left C6-C7 neural foraminal narrowing. Dictated by: Chioma Jalloh MD, PhD on 03/23/2017 at 11:06 MRI THORACIC SPINE WITH AND WITHOUT CONTRAST IMPRESSION: 1. No epidural abscess identified. There is mild, linear postcontrast enhancement in the posterior epidural space extending from T2-T8 vertebral body levels which may represent a reactive change associated with adjacent T2-T5 myositis or cellulitis or early epidural space infection. 2. Mild post contrast enhancement involving the dura paraspinous soft tissues are the level the T2-T5 vertebral bodies. Finding is nonspecific but can be seen in myositis/cellulitis. Please correlate with clinical data. 3. No evidence of discitis/osteomyelitis. Dictated by: Chioma Jalloh MD, PhD on 03/23/2017 at 9:56 MRI LUMBAR SPINE WITH AND WITHOUT CONTRAST IMPRESSION: 1. No evidence for epidural abscess. 2. No evidence of discitis/osteomyelitis. 3. Postsurgical changes. 4. Multilevel degenerative disease. 5. Multiple psychotropic. 6. Mild L1-L2, L2 and L3 and L4-L5 central canal narrowing. Moderate L3-L4 central canal narrowing. 7. Mild bilateral L1-L2 and L2-L3 neural foraminal narrowing. Moderate bilateral L3-L4 and L4-L5 neural foraminal narrowing. Dictated by: Chioma Jalloh MD, PhD on 03/23/2017 at 8:33 . Cardiac Echo Impressions Echocardiogram Report Name: MARY ANN GALLARDO LStudy Lele ate: 03/28/2017 Height: 65 in Hospital Exam Location: [facility] Weight: 160 lb Gender: Female BSA: 1.8 m2 : 1970 Age: 46 yrs BP: 126/75 mmHg Reason For Study: Possible vegetation Ordering Physician: PETER [facility] Performed By: Hannah Landon Referring Physician: Jimbo Hinojosa Interpretation Summary The left ventricle is normal in size. Left ventricular systolic function is normal without focal wall motion abnormalities. The ejection fraction is estimated to be 60-65%. Assessment of diastolic parameters indicates normal left ventricular diastolic function and normal filling pressures. The right ventricle is normal in size, thickness and function. The right ventricular systolic function is normal. The right ventricular systolic pressure is estimated at 22 mmHg assuming a right atrial pressure of 8 mm Hg. Borderline left atrial enlargement. The right atrium is normal in size. There is no significant valvular heart disease. No vegetative masses are visualized on this transthoracic echocardiogram. The aortic root is normal size. Assessment & Plan Mary Ann Gallardo is a 46-year-old female with a past medical history significant for bipolar disorder and IV drug use who presented to [facility] emergency Department for right mid-thoracic back pain. The patient was admitted to hospitalist service for further evaluation and treatment. 1. Acute myositis, present on admission. Active. - Patient recently left [place] due to "panic attack" and re-presented with back pain without neurological deficit. - Continue serial neurologic evaluations at least twice a day focusing on muscle strength and bowel and bladder function. - MRI of thoracic spine showed: "No epidural abscess identified. There is mild, linear postcontrast enhancement in the posterior epidural space extending from T2-T8 vertebral body levels which may represent a reactive change associated with adjacent T2-T5 myositis or cellulitis or early epidural space infection. Mild post contrast enhancement involving the dura paraspinous soft tissues are the level the T2-T5 vertebral bodies. Finding is nonspecific but can be seen in myositis/cellulitis." - Ordered blood cultures 2, pending. Patient has a one positive blood culture out of the aerobic bottle with identification and sensitivities pending. Need to continue to order blood cultures on a daily basis until negative. Wound culture from an abscess found on left hand at [facility] in [place] obtained on 02/27/2017 was positive for MRSA. - Plan for repeat MRI of the thoracic spine on Sunday to ensure improvement in inflammation. - If the patient were to develop any new neurological deficits would need to order MRI of her entire spine. - We will continue vancomycin IV per pharmacy - Continue meropenem 2 g every 8 hours for now ending final culture results. May consider discontinuing soon. - Re-consult infectious disease when available. - Will try to avoid opiates with her history of opiate addiction and ordered Suboxone for Dr. Light to manage as an outpatient. Chronic problems: 2. Bipolar disorder, present on admission. Presumed stable. - Not medically treated. 3. Depression and anxiety, present on admission. Presumed stable. - Not medically treated. 4. History of IV drug use, present on admission. - Encouraged cessation of IV drug use. - [employer] consult ordered. - Will try to avoid opiates with her history of opiate addiction and order Suboxone for signs of withdrawal once 24 hours past the time of last use. Dr. Light to manage Suboxone as an outpatient. At time of discharge, ideal option high priority hotline should be called at [phone] to set up an appointment with Dr. Light. 5. Tobacco dependence, present on admission. Stable. - Encouraged smoking cessation. - Ordered nicotine patch as needed. 6. Hepatitis C positive, present on admission. Presumed stable. - Patient recently tested positive at her last admission for hepatitis C. - Ordered genotype and RNA viral load, pending. PRN antiemetics: Zofran and Maalox. PRN bowel regimen: Senna and MiraLAX. PRN analgesics: Tylenol. Disposition: Patient will likely be here for several weeks for IV antibiotic therapy. Once stable may consider transfer to a swing bed unit. . Pain Evaluation: Adequate Pain Control VTE Prophylaxis: Sub-Q Heparin (Unfractionated) VTE Mechanical Devices: Venous Foot Pump Resuscitation Status: DNR/DNI:Do Not Resuscitate/Intubate Jose Deluca MD Mar 31, 2017 00:31
[2017-03-31] MEDS ORDERED: Vancomycin Serum Trough XX ONE ×2 (04:00→12:00)
[2017-03-31 04:24] VITALS: BP 94/51; PULSE 76; RESP 16; O2SAT 98
[2017-03-31] MEDS: Vancomycin Inj 750 MG in 0.9% Sodium Chloride 250 ML IV SCH ×2 (05:29→12:57)
[2017-03-31] MEDS: Vancomycin Dose per Pharmacist XX SCH (07:34)
--- NOTE | 2017-03-31 12:47 | NUR ---
Re-timed medication Patient had Meropenem IV ordered. Medication was off schedule by 4 hours. Nurse called pharmacy to re-time medication. Medication was re-timed.
--- NOTE | 2017-03-31 12:49 | NUR ---
Vanco trough Patient had critical Vanco trough at 34.9 at 0726. MD was notified and Pharmacy was notified. No changes at this time.
[2017-03-31 13:17] VITALS: BP 116/75; PULSE 71; RESP 16; O2SAT 100
--- NOTE | 2017-03-31 14:48 | PCM.PHAPRO ---
Progress Back pain. . VANCOMYCIN DOSING PER PHARMACY Labs: Scr 0.77 Initial trough this morning drawn after dose was hung Trough redrawn at 1200 before next dose: 22.1 Of note: Results came back after next dose had been hung for a little over an hour P: Finished up current bag Will adjust to vancomycin 500 mg IV q8h beginning tonight Will draw additional trough on 04/01 @1200 Pharmacy will continue to follow, thank you Ambar Caceres PharmD Mar 31, 2017 14:48
[2017-03-31] MEDS: Vancomycin Inj 500 MG in 0.9% Sodium Chloride 100 ML IV SCH (20:45)
[2017-03-31 21:20] VITALS: BP 100/59; PULSE 75; RESP 16; O2SAT 100
[2017-03-31] MEDS: LORazepam 1 mg Tablet PO PRN (23:42)
--- NOTE | 2017-04-01 00:50 | PCM.PNMED ---
Subjective Date of Service Apr 01, 2017 Subjective The patient has no new complaints. She is still having back pain however it has been controlled with IV morphine. Exam Vital Signs Vital Sign - Last Date Time Temp Pulse Resp B/P Pulse Ox O2 Delivery O2 Flow Rate FiO2 03/31/17 21:20 37.2 75 16 100/59 100 Room Air Intake and Output 03/31/17 03/31/17 04/01/17 Cumulative From/Thru 15:00 23:00 07:00 03/24/17 23:02 - 03/31/17 18:29 Intake Total 2186 ml 09858 ml Output Total 6450 ml Balance 2186 ml 18971 ml Intake Oral 1020 ml 98705 ml IV Total 1166 ml 6256 ml Output Urine Total 6450 ml # Voids 3 31 # Bowel Movements 0 0 Exam General: Patient is lying supine in bed with her Wisam and she is in no apparent distress. There are watching opera together on television HEENT: Head is atraumatic and normocephalic. Eyes: Pupils are equally round and reactive to light and accommodation. Extraocular muscles are intact. Sclera are white, anicteric. Subconjunctival mucosa is pink. Ears and nose are unremarkable. Oropharynx: There is no mucosal lesions, there is no thrush, there is no pharyngitis. Neck: Is supple, there are no nodes, or masses or tenderness. Chest: Is clear to auscultation and percussion. There are no rales, rhonchi, wheezes or rubs. Heart: Rate, rhythm is regular. There is no new murmur, rub or gallop. Abdomen: Good bowel sounds are present. Abdomen is soft, nontender, no organomegaly or masses were appreciated. Extremities: Are symmetrical and well perfused. There is no edema, there is no cellulitis, no rash. There are innumerable well healed old scars on the upper extremities. Track ramos in both antecubital areas. Neurologic: There are no focal neurological deficits. Cranial nerves II through XII are intact. There are no sensory or motor deficits. Psychiatric: Patients mood is calm and she shows no sign of agitation. Again her affect is flat today. Genital: Deferred Rectal: Deferred Lab and Diagnostics Result Diagram: 03/30/17 0505 03/31/17 0605 Microbiology Blood cultures 2 pending. Blood culture from 03/22/2017 positive 1:4 with identification and sensitivities pending. Wound culture from left hand abscess performed at [facility] in [place] on 02/27/2017 collected at 1521 hrs. culture wound smear #[id number] showed heavy growth of Staphylococcus aureus methicillin-resistant Staphylococcus aureus. Susceptibilities show resistance to azithromycin ciprofloxacin erythromycin levofloxacin oxacillin and trimethoprim sulfamethoxazole the MRSA is sensitive to clindamycin and tetracycline and vancomycin. . X-Rays, CTs and MRIs MRI CERVICAL SPINE WITH AND WITHOUT CONTRAST IMPRESSION: 1. No epidural abscess. 2. No discitis/osteomyelitis. 3. Multilevel degenerative disc disease. 4. Moderate C5-C6 central canal narrowing. Mild C6-C7 central canal narrowing. 5. Mild bilateral C3-C4 neural foraminal narrowing. Mild right and moderate left C5-C6 neural foraminal narrowing. Moderate right and mild left C6-C7 neural foraminal narrowing. Dictated by: Chioma Jalloh MD, PhD on 03/23/2017 at 11:06 MRI THORACIC SPINE WITH AND WITHOUT CONTRAST IMPRESSION: 1. No epidural abscess identified. There is mild, linear postcontrast enhancement in the posterior epidural space extending from T2-T8 vertebral body levels which may represent a reactive change associated with adjacent T2-T5 myositis or cellulitis or early epidural space infection. 2. Mild post contrast enhancement involving the dura paraspinous soft tissues are the level the T2-T5 vertebral bodies. Finding is nonspecific but can be seen in myositis/cellulitis. Please correlate with clinical data. 3. No evidence of discitis/osteomyelitis. Dictated by: Chioma Jalloh MD, PhD on 03/23/2017 at 9:56 MRI LUMBAR SPINE WITH AND WITHOUT CONTRAST IMPRESSION: 1. No evidence for epidural abscess. 2. No evidence of discitis/osteomyelitis. 3. Postsurgical changes. 4. Multilevel degenerative disease. 5. Multiple psychotropic. 6. Mild L1-L2, L2 and L3 and L4-L5 central canal narrowing. Moderate L3-L4 central canal narrowing. 7. Mild bilateral L1-L2 and L2-L3 neural foraminal narrowing. Moderate bilateral L3-L4 and L4-L5 neural foraminal narrowing. Dictated by: Chioma Jalloh MD, PhD on 03/23/2017 at 8:33 . Cardiac Echo Impressions Echocardiogram Report Name: BENY GALLARDOJulianne Royal ate: 03/28/2017 Height: 65 in Hospital Exam Location: [facility] Weight: 160 lb Gender: Female BSA: 1.8 m2 : 1970 Age: 46 yrs BP: 126/75 mmHg Reason For Study: Possible vegetation Ordering Physician: PETER [facility] Performed By: Hannah Landon Referring Physician: Jimbo Hinojosa Interpretation Summary The left ventricle is normal in size. Left ventricular systolic function is normal without focal wall motion abnormalities. The ejection fraction is estimated to be 60-65%. Assessment of diastolic parameters indicates normal left ventricular diastolic function and normal filling pressures. The right ventricle is normal in size, thickness and function. The right ventricular systolic function is normal. The right ventricular systolic pressure is estimated at 22 mmHg assuming a right atrial pressure of 8 mm Hg. Borderline left atrial enlargement. The right atrium is normal in size. There is no significant valvular heart disease. No vegetative masses are visualized on this transthoracic echocardiogram. The aortic root is normal size. Assessment & Plan Kaylene Gallardo is a 46-year-old female with a past medical history significant for bipolar disorder and IV drug use who presented to [facility] emergency Department for right mid-thoracic back pain. The patient was admitted to hospitalist service for further evaluation and treatment. 1. Acute myositis, present on admission. Active. - Patient recently left [facility] due to "panic attack" and re-presented with back pain without neurological deficit. - Continue serial neurologic evaluations at least twice a day focusing on muscle strength and bowel and bladder function. - MRI of thoracic spine showed: "No epidural abscess identified. There is mild, linear postcontrast enhancement in the posterior epidural space extending from T2-T8 vertebral body levels which may represent a reactive change associated with adjacent T2-T5 myositis or cellulitis or early epidural space infection. Mild post contrast enhancement involving the dura paraspinous soft tissues are the level the T2-T5 vertebral bodies. Finding is nonspecific but can be seen in myositis/cellulitis." - Controlled with IV Toradol which has . Therefore, will change to oral ibuprofen. - Continue IV morphine when necessary - Ordered blood cultures 2, pending. Patient has a one positive blood culture out of the aerobic bottle with identification and sensitivities pending. Need to continue to order blood cultures on a daily basis until negative. Wound culture from an abscess found on left hand at [facility] in [place] obtained on 02/27/2017 was positive for MRSA. - Plan for repeat MRI of the thoracic spine on Sunday to ensure improvement in inflammation. - If the patient were to develop any new neurological deficits would need to order MRI of her entire spine. - We will continue vancomycin IV per pharmacy - Continue meropenem 2 g every 8 hours for now ending final culture results. May consider discontinuing soon. - Re-consult infectious disease when available. - Will try to avoid opiates with her history of opiate addiction and ordered Suboxone for Dr. Light to manage as an outpatient. Chronic problems: 2. Bipolar disorder, present on admission. Presumed stable. - Not medically treated. 3. Depression and anxiety, present on admission. Presumed stable. - Not medically treated. 4. History of IV drug use, present on admission. - Encouraged cessation of IV drug use. - [employer] consult ordered. - Will try to avoid opiates with her history of opiate addiction and order Suboxone for signs of withdrawal once 24 hours past the time of last use. Dr. Light to manage Suboxone as an outpatient. At time of discharge, ideal option high priority hotline should be called at [phone] to set up an appointment with Dr. Light. 5. Tobacco dependence, present on admission. Stable. - Encouraged smoking cessation. - Ordered nicotine patch as needed. 6. Hepatitis C positive, present on admission. Presumed stable. - Patient recently tested positive at her last admission for hepatitis C. - Ordered genotype and RNA viral load, pending. PRN antiemetics: Zofran and Maalox. PRN bowel regimen: Senna and MiraLAX. PRN analgesics: Tylenol. Disposition: Patient will likely be here for several weeks for IV antibiotic therapy. Once stable may consider transfer to a swing bed unit. . Pain Evaluation: Adequate Pain Control VTE Prophylaxis: Sub-Q Heparin (Unfractionated) VTE Mechanical Devices: Venous Foot Pump Resuscitation Status: DNR/DNI:Do Not Resuscitate/Intubate Jose Deluca MD Apr 01, 2017 00:50
[2017-04-01] MEDS ORDERED: Vancomycin Serum Trough XX ONE ×2 (04:00→12:00)
[2017-04-01 04:30] VITALS: BP 126/81; PULSE 90; RESP 16; O2SAT 100
[2017-04-01] MEDS: LORazepam 1 mg Tablet PO PRN ×2 (05:08→20:02)
[2017-04-01] MEDS: Vancomycin Inj 500 MG in 0.9% Sodium Chloride 100 ML IV SCH ×3 (05:09→21:30)
[2017-04-01 07:14] LABS: BASOPHILS % (AUTO) 0.7 % (0-3); EOSINOPHILS % (AUTO) 9.9 % (0-5); MONOCYTES % (AUTO) 9.3 % (4-12); Mean Corpuscular Hemoglobin 28.4 pg (27.0-35.0); Mean Corpuscular Volume 84.6 fL (81-100); NEUTROPHILS % (AUTO) 50.2 % (40-74); Platelet Count 427 bil/L (150-400)
[2017-04-01 07:39] LABS: Magnesium 2.3 mg/dL (1.6-2.6)
[2017-04-01] MEDS: Meropenem Inj 2,000 MG in 0.9% Sodium Chloride 100 ML IV SCH ×2 (07:57→16:36)
[2017-04-01] MEDS: Vancomycin Dose per Pharmacist XX SCH (07:59)
--- NOTE | 2017-04-01 13:48 | PCM.PHAPRO ---
Progress Back pain. . VANCOMYCIN DOSING PER PHARMACY Trough: 16.9 SCr: 0.61 WBC: 5.5 P: Trough is appropriate Will continue with vancomycin 500mg IV q8h Scr is improving, will draw additional trough 04/03 @1130 Pharmacy will continue to follow Ambar Caceres PharmD Apr 01, 2017 13:48
--- NOTE | 2017-04-01 16:37 | NUR ---
Social Work-initial assessment: Data:See initial assessment Pt is a 46 y/o male who was admitted on 03/25/17 for pymoyostis per H&P. Pt's insurance is [employer] and PCP is not listed. EMR Reviewed. Pt's readmission score is 2. SW met with pt at bedside, SW role explained. Pt is alert and oriented x3. pt resides at home with her where she remains independent with ADLs. Pt drives and does not use any DME. Pt has no HH or SNF history. Pt has no long term care social worker care insurance or VA benefits. Pt discussed DPOA/ advanced directive, SW provided pt with information. Pt confirms her SO will provide transport home. SW complete CD assessment, SW alternative note. Pt to remain at [facility] for IV abx. Referral also made to [facility]. SW provided with pt discharge planning checklist and encouraged pt to call with any questions, phone number provided. SW will continue to follow. Assessment:pt who is independent at baseline. Plan:Pt to discharge home once IV abx are completed vs [facility] referral has been sent. SW will continue to follow. HANSA Levin Addendum: 04/01/17 at 1639 by ALEC BLANDON Amended: Links added.
--- NOTE | 2017-04-01 16:39 | NUR ---
Social Work-chemical dependency assessment: Data:EMR reviewed. Pt is on day 7 of hospitalization for pymoyostis per H&P. Pt is likely here for extended course of IV abx, referral also been made to [facility] Swing bed. Pt reports that she uses IV heroin regularly. SW discussed pt meeting with ALEKSANDR from [facility] and pt is agreeable. SW had ABILIO signed and referral given to April who will be back Sunday and will meet with pt. ABILIO completed and placed in the front of the chart. SW will continue to follow. Assessment:Pt who is independent at baseline. Plan:Pt to remain in Hospital until IV abx vs referral made to [facility] swing beds. ABILIO signed and placed in the chart. ALEKSANDR Chen from [facility] to meet with pt. VANDANA will continue to follow. HANSA Levin
[2017-04-01 17:13] VITALS: BP 111/76; PULSE 75; RESP 18; O2SAT 98
--- NOTE | 2017-04-01 17:28 | NUR ---
Drug use policy placed Patient admitted to MD and nurse that she had been taking outside methadone around 30mg, but unsure of how much. Patient said she has run out and now feels sick. Patient asked MD to give her 50mg of IV morphine. MD let patient know that was not an option. Patient then asked for methadone due to taking 140mg methadone at home. MD stated he would order a smaller dose of methadone. Patient was agreeable. Charge nurse was notified of patient taking outside medications. Sharps container was removed earlier in the day. Patient belongings were locked in closet and was asked to leave. A bottle of Liquid methadone was found in night stand next to patient. stated it was his. Patient began to raise his voice and state he had no way to get back home. started blaming his and yelling at her for coming to the hospital. asked patient to leave with him several time. Security was in room while this was happening. Patient ripped out peripheral IV and stated she was leaving, but wanted her pain pills first. Nurse informed patient that she would not be administered pain medication if she was leaving. She plopped back into bed and said, "Fine, I'm staying then". was told he had to leave again. He then drank the rest of the bottle of methadone and continued to say he didn't know where he was going to go and telling to leave with him. Security left with . then called shortly after to talk with telling her to leave. Patient became upset and stated she wanted to leave again. Carver Hand was in room at this time and talked with patient letting her know how important it is she stay here and let us take care of her. Patient said she would think about it. Patient then got a phone call again from her from and she was yelling at him on the phone and hung up on him. Carver Hand and charge nurse went in to talk with patient. Patient decided to unplug her phone and not talk with him for a little bit. Patient said she needed time to think about what she was going to do. IV therapy was called and placed new peripheral 20guage IV. Addendum: 04/01/17 at 1844 by MARKUS ZARATE RN Patient on phone again with and told him, "I can't believe you want me to leave when I have an infection this bad". Patient hung up phone with and was calmer. Patient told nurse, "He keeps begging me to leave". Nurse replied, "Don't leave Mary Ann, you need to take care of yourself. Let us take care of you". Patient stated, "I know I do, but you don't have to live with him afterward". Patient was calm and wanted to take a shower. Will continue to monitor.
[2017-04-01 20:41] VITALS: BP 107/61; PULSE 73; RESP 18; O2SAT 98
--- NOTE | 2017-04-01 23:42 | PCM.PNMED ---
Subjective Date of Service Apr 01, 2017 Subjective The patient was asking for note more narcotics today as she was beginning to have withdrawal symptoms. When ask why she would have withdrawal symptoms now 7 days into her admission she reported that she had been taking methadone from home. At that point her nurse Ramya Pate presented this to the charge nurse Lisandro and they followed hospital policy by gathering the patient and her 's belongings and locking them up for security and asking the who had methadone with him to leave the room. The patient threatened to leave AGAINST MEDICAL ADVICE however in a moment of better judgment realized the significance of her current infection and decided to stay. As she has been taking methadone from home I explained to her that I could give her methadone 10 mg by mouth twice a day even though she states that she takes up to 140 mg a day. [facility] accepted this treatment plan and agreed to stay. Exam Vital Signs Vital Sign - Last Date Time Temp Pulse Resp B/P Pulse Ox O2 Delivery O2 Flow Rate FiO2 04/01/17 20:41 36.6 73 18 107/61 98 Room Air Intake and Output 03/31/17 03/31/17 04/01/17 Cumulative From/Thru 15:00 23:00 07:00 03/24/17 23:02 - 04/01/17 05:39 Intake Total 2186 ml 750 ml 77010 ml Output Total 6450 ml Balance 2186 ml 750 ml 81751 ml Intake Oral 1020 ml 750 ml 13190 ml IV Total 1166 ml 6256 ml Output Urine Total 6450 ml # Voids 3 4 35 # Bowel Movements 0 0 Exam General: Patient is lying supine in bed in distress due to withdrawal symptoms. HEENT: Head is atraumatic and normocephalic. Eyes: Pupils are equally round and reactive to light and accommodation. Extraocular muscles are intact. Sclera are white, anicteric. Subconjunctival mucosa is pink. Ears and nose are unremarkable. Oropharynx: There is no mucosal lesions, there is no thrush, there is no pharyngitis. Neck: Is supple, there are no nodes, or masses or tenderness. Chest: Is clear to auscultation and percussion. There are no rales, rhonchi, wheezes or rubs. Heart: Rate, rhythm is regular. There is no new murmur, rub or gallop. Abdomen: Good bowel sounds are present. Abdomen is soft, nontender, no organomegaly or masses were appreciated. Extremities: Are symmetrical and well perfused. There is no edema, there is no cellulitis, no rash. There are innumerable well healed old scars on the upper extremities. Track ramos in both antecubital areas. Neurologic: There are no focal neurological deficits. Cranial nerves II through XII are intact. There are no sensory or motor deficits. Psychiatric: Patients mood is calm and she shows no sign of agitation. Again her affect is flat today. Genital: Deferred Rectal: Deferred Lab and Diagnostics Result Diagram: 04/01/17 0653 04/01/1753 Microbiology Blood cultures 2 pending. Blood culture from 03/22/2017 positive 1:4 with identification and sensitivities pending. Wound culture from left hand abscess performed at [facility] in [place] on 02/27/2017 collected at 1521 hrs. culture wound smear #[id number] showed heavy growth of Staphylococcus aureus methicillin-resistant Staphylococcus aureus. Susceptibilities show resistance to azithromycin ciprofloxacin erythromycin levofloxacin oxacillin and trimethoprim sulfamethoxazole the MRSA is sensitive to clindamycin and tetracycline and vancomycin. . X-Rays, CTs and MRIs MRI CERVICAL SPINE WITH AND WITHOUT CONTRAST IMPRESSION: 1. No epidural abscess. 2. No discitis/osteomyelitis. 3. Multilevel degenerative disc disease. 4. Moderate C5-C6 central canal narrowing. Mild C6-C7 central canal narrowing. 5. Mild bilateral C3-C4 neural foraminal narrowing. Mild right and moderate left C5-C6 neural foraminal narrowing. Moderate right and mild left C6-C7 neural foraminal narrowing. Dictated by: Chioma Jalloh MD, PhD on 03/23/2017 at 11:06 MRI THORACIC SPINE WITH AND WITHOUT CONTRAST IMPRESSION: 1. No epidural abscess identified. There is mild, linear postcontrast enhancement in the posterior epidural space extending from T2-T8 vertebral body levels which may represent a reactive change associated with adjacent T2-T5 myositis or cellulitis or early epidural space infection. 2. Mild post contrast enhancement involving the dura paraspinous soft tissues are the level the T2-T5 vertebral bodies. Finding is nonspecific but can be seen in myositis/cellulitis. Please correlate with clinical data. 3. No evidence of discitis/osteomyelitis. Dictated by: Chioma Jalloh MD, PhD on 03/23/2017 at 9:56 MRI LUMBAR SPINE WITH AND WITHOUT CONTRAST IMPRESSION: 1. No evidence for epidural abscess. 2. No evidence of discitis/osteomyelitis. 3. Postsurgical changes. 4. Multilevel degenerative disease. 5. Multiple psychotropic. 6. Mild L1-L2, L2 and L3 and L4-L5 central canal narrowing. Moderate L3-L4 central canal narrowing. 7. Mild bilateral L1-L2 and L2-L3 neural foraminal narrowing. Moderate bilateral L3-L4 and L4-L5 neural foraminal narrowing. Dictated by: Chioma Jalloh MD, PhD on 03/23/2017 at 8:33 . Cardiac Echo Impressions Echocardiogram Report Name: MARY ANN GALLARDO LStudy D ate: 03/28/2017 Height: 65 in Hospital Exam Location: [facility] Weight: 160 lb Gender: Female BSA: 1.8 m2 : 1970 Age: 46 yrs BP: 126/75 mmHg Reason For Study: Possible vegetation Ordering Physician: PETER [facility] Performed By: Hannah Landon Referring Physician: Jimbo Hinojosa Interpretation Summary The left ventricle is normal in size. Left ventricular systolic function is normal without focal wall motion abnormalities. The ejection fraction is estimated to be 60-65%. Assessment of diastolic parameters indicates normal left ventricular diastolic function and normal filling pressures. The right ventricle is normal in size, thickness and function. The right ventricular systolic function is normal. The right ventricular systolic pressure is estimated at 22 mmHg assuming a right atrial pressure of 8 mm Hg. Borderline left atrial enlargement. The right atrium is normal in size. There is no significant valvular heart disease. No vegetative masses are visualized on this transthoracic echocardiogram. The aortic root is normal size. Assessment & Plan Mary Ann Gallardo is a 46-year-old female with a past medical history significant for bipolar disorder and IV drug use who presented to [facility] emergency Department for right mid-thoracic back pain. The patient was admitted to hospitalist service for further evaluation and treatment. 1. Acute myositis, present on admission. Active. - Patient recently left A due to "panic attack" and re-presented with back pain without neurological deficit. - Continue serial neurologic evaluations at least twice a day focusing on muscle strength and bowel and bladder function. - MRI of thoracic spine showed: "No epidural abscess identified. There is mild, linear postcontrast enhancement in the posterior epidural space extending from T2-T8 vertebral body levels which may represent a reactive change associated with adjacent T2-T5 myositis or cellulitis or early epidural space infection. Mild post contrast enhancement involving the dura paraspinous soft tissues are the level the T2-T5 vertebral bodies. Finding is nonspecific but can be seen in myositis/cellulitis." - Controlled with IV Toradol which has . Therefore, will change to oral ibuprofen. - Continue IV morphine when necessary - Ordered blood cultures 2, pending. Patient has a one positive blood culture out of the aerobic bottle with identification and sensitivities pending. Need to continue to order blood cultures on a daily basis until negative. Wound culture from an abscess found on left hand at [facility] in [place] obtained on 02/27/2017 was positive for MRSA. - Plan for repeat MRI of the thoracic spine on Sunday to ensure improvement in inflammation. - If the patient were to develop any new neurological deficits would need to order MRI of her entire spine. - We will continue vancomycin IV per pharmacy - Continue meropenem 2 g every 8 hours for now ending final culture results. May consider discontinuing soon. - Re-consult infectious disease when available. - Will try to avoid opiates with her history of opiate addiction and ordered Suboxone for Dr. Light to manage as an outpatient. Chronic problems: 2. Bipolar disorder, present on admission. Presumed stable. - Not medically treated. 3. Depression and anxiety, present on admission. Presumed stable. - Not medically treated. 4. History of IV drug use, present on admission. - Encouraged cessation of IV drug use. - OPTICAL DES[employer]ER consult ordered. - As patient used to go to the methadone clinic and use to be given 140 mg of methadone a day per her history, and she reports taking methadone in the hospital room from home, all of her belongings have been backed up with security and her had to leave the room. This is all per hospital policy. For the safety of the patient. We will prescribe methadone 10 mg by mouth twice a day for the patient. 5. Tobacco dependence, present on admission. Stable. - Encouraged smoking cessation. - Ordered nicotine patch as needed. 6. Hepatitis C positive, present on admission. Presumed stable. - Patient recently tested positive at her last admission for hepatitis C. - Ordered genotype and RNA viral load, pending. PRN antiemetics: Zofran and Maalox. PRN bowel regimen: Senna and MiraLAX. PRN analgesics: Tylenol. Disposition: Patient will likely be here for several weeks for IV antibiotic therapy. Once stable may consider transfer to a swing bed unit. Will obtain infectious disease consult with Dr. smith. . Pain Evaluation: Adequate Pain Control VTE Prophylaxis: Sub-Q Heparin (Unfractionated) VTE Mechanical Devices: Venous Foot Pump Resuscitation Status: DNR/DNI:Do Not Resuscitate/Intubate Jose Deluca MD Apr 01, 2017 23:42
[2017-04-02] MEDS: Meropenem Inj 2,000 MG in 0.9% Sodium Chloride 100 ML IV SCH ×3 (00:26→16:21)
[2017-04-02] MEDS: Vancomycin Inj 500 MG in 0.9% Sodium Chloride 100 ML IV SCH ×2 (04:11→12:29)
[2017-04-02 04:14] VITALS: BP 100/65; PULSE 73; RESP 17; O2SAT 98
--- NOTE | 2017-04-02 04:22 | NUR ---
Pain Pt. pain managed by scheduled methadone and given 1 dose of prn IV morphine upon pt. request with effective results, pt. anxious at the beginning of the shift, administered prn ativan, effective. Vitals stable, afebrile, call light in reach at all times, hourly checks, all needs attended, will continue to monitor.
[2017-04-02] MEDS: LORazepam 1 mg Tablet PO PRN ×3 (06:04→16:25)
[2017-04-02 07:06] LABS: BASOPHILS % (AUTO) 0.8 % (0-3); EOSINOPHILS % (AUTO) 11.8 % (0-5); MONOCYTES % (AUTO) 9.9 % (4-12); Mean Corpuscular Volume 85.1 fL (81-100); NEUTROPHILS % (AUTO) 42.2 % (40-74); Platelet Count 487 bil/L (150-400)
[2017-04-02] MEDS: Vancomycin Dose per Pharmacist XX SCH (07:39)
[2017-04-02 08:28] LABS: ERYTHROCYTE SEDIMENTATION RATE 68 mm/hr (0-32)
[2017-04-02 08:46] LABS: Magnesium 2.3 mg/dL (1.6-2.6)
--- NOTE | 2017-04-02 10:02 | DRSVH ---
PROCEDURE: MRI THORACIC SPINE WITH AND WITHOUT CONTRAST ([id number]) INDICATIONS: Follow Up for Epidural/Paraspinal Abscess TECHNIQUE: Noncontrast sagittal T1 spin echo and T2 fast spin echo, sagittal STIR, axial T1 and T2 fast spin ech o through the thoracic spine. After the administration of contrast, axial and sagittal T1 spin echo with fat saturation through the thoracic spine. COMPARISON: [facility], MR, MR THORACIC SPINE W&WO CON, 03/22/2017, 21:34. FINDINGS: Image quality: Excellent. Alignment and curvature: There is normal bony alignment. Marrow: Marrow is of normal overall signal. No acute vertebral body compression fractures. Spinal cord: Visualized spinal cord is of normal signal and size, without abnormal enhancement. Paraspinous soft tissues: No paravertebral masses or abnormal enhancement. The previously described mild enhancement along the posterior aspects of the T2 through T5 vertebral bodies is no longer seen . Miscellaneous: Central canal and foramina appear widely patent at all scanned levels. No abnormal enhancement can be seen at any disc level. Centered at the T3-T4 level, there is fluid signal which matches CSF on each imaging sequence that do es not enhance and on the spinal cord from posteriorly. This can be seen for example on series 6 rob ge 33. This is unchanged compared to the prior MRI. IMPRESSION: No findings of epidural or paraspinal abscess can be seen. No findings of discitis or osteomyelitis are seen. There is stable flattening of the spinal cord from posteriorly centered at the T3-T4 level, which is unchanged compared to the prior examination. This does not enhance and is attributed to a benign pro cess. Resolution of the previously seen posterior paraspinous soft tissue enhancement. Dictated by: Ian Lara M.D. on 04/02/2017 at 8:55 Approved by: Ian Lara M.D. on 04/02/2017 at 9:00
--- NOTE | 2017-04-02 12:43 | NUR ---
Behavioral contract Patient had a behavioral contract made to include personalizing information for patient. Charge nurse and primary nurse went over terms of contract with patient and . Patient agreed and signed contract. Patient agreed that visitors shall have visiting hours from [id number], visitor personal belongings shall be locked in closet by security, no bed sharing, no outside medications or substances brought into hospital etc. Patient was agreeable with terms. A copy was made one placed in chart and one given to patient.
[2017-04-02 13:36] VITALS: BP 100/59; PULSE 75; RESP 16; O2SAT 99
[2017-04-02] MEDS ORDERED: Oritavancin Diphosphate 400 mg Vial IV ONE (18:15)
[2017-04-02] MEDS ORDERED: Oritavancin Diphosphate 1,200 MG in Dextrose 5% 1,000 ML IV ONE (18:30)
--- NOTE | 2017-04-02 19:02 | PROG NOTE ---
[address] [address] PROGRESS NOTE PATIENT: KAYLENE GALLARDO : 1970 MR#: [id number] ADMIT: 03/25/2017 JOB ID: [id number] DATE: 04/02/2017 REASON FOR FOLLOWUP: Paraspinous infection. INTERVAL HISTORY: I saw this patient in consultation on March 23, which was the day before I left on a nine-day vacation. At the time I saw her, we were extremely concerned in that she is an IV drug user who presented with back pain, fevers, and was found to have an enhancing thoracic paraspinous infection along the thoracic posterior paraspinous region. There was no obvious epidural abscess which had collected, nor was there diskitis or osteomyelitis, but it was nonetheless an extremely concerning process as she also had a very high CRP. At the time I saw her back on March 23, I recommended a variety of serologic studies and treating aggressively with vancomycin and meropenem while we awaited cultures. Unfortunately, shortly after I saw the patient and left on my vacation, the patient had what she termed a "panic attack" and signed out AMA. She then spent about one day out of the hospital and came back on March 25 and got readmitted. At that time, she was started once again back on vancomycin and meropenem, which she has been on now for about eight days. The patient reports that during the course of the day, she has been improving, but she was apparently taking methadone from home to forestall any withdrawal problems and has now run out of that methadone and is actively withdrawing from narcotics. Recall that the patient has been a once-a-day heroin injector and/or methadone user for many, many years and she is now really in the throes of withdrawal. Because of the withdrawal, she is currently having sweats and chills but no fevers. She also has some headache, diffuse myalgias, and just feels terrible. Whether or not this is related to infection or withdrawal or some combination cannot really be established, at least through her symptoms. PHYSICAL EXAMINATION: Reveals a woman who has been afebrile since really her initial presentation on March 22. Temperature right now 36.5, pulse 75, respiratory rate 16, blood pressure 100/59. She is saturating well on room air and is in mild distress due to her ongoing withdrawal. Examination of the head reveals no evidence of abnormality, her eyes without conjunctivitis. Oral cavity is quite benign. Lungs are clear. Cardiac tones without significant murmur. Abdomen benign. Back is essentially nontender. LABORATORY STUDIES: Include a white count of 6000. Recall that her white count has been normal since her original presentation on March 22. That white count is 6000, and is notable for 12% eosinophils. Sed rate is 68. CRP, which had been as high as 11 on March 23, is now down to 0.1 this morning. Procalcitonin is negative. Urinalysis is without white cells. Vancomycin trough 17 this morning. Serologic studies from this series of admissions include negative Bartonella antibodies. Hep C is positive with a low viral load of only 2800. HIV is negative. Streptozyme was very strongly positive, 439. QuantiFERON Gold was negative. Micro includes only one of four blood cultures from admission which was positive for methicillin-sensitive Staph epidermidis. IMAGING: Includes our original thoracic spine MRI from March 23, which was so worrisome because of the posterior epidural space enhancement. A followup MRI done this morning is negative. IMPRESSION: This is a complicated case of a woman with a history of methicillin-resistant Staphylococcus aureus infection of her hand in the past few weeks, who then presented here on March 22 with very significant back pain, diaphoresis, and chills. We do not have an established microbe as the cause of this paraspinous infection, though we do know the patient had a methicillin-resistant Staphylococcus aureus infection some weeks prior as an outpatient at the [facility], and we know she had a very high ASO titer, when she presented here on March 22. The patient has improved considerably with a fall from 10.0 to 0.1 in her CRP during these really eight or nine days of interrupted therapy. Additionally, the MRI findings of the thoracic spine have almost completely resolved which is, in and of itself, quite extraordinary. It is difficult to figure out what all this means clinically as the patient has now shifted into opiate withdrawal and is intimating that she may wish to leave AMA if her opiate replacement therapy is not increased. RECOMMENDATIONS: 1. Will go ahead and stop the vancomycin and give a single dose of oritavancin now. The oritavancin is being given so that if she does leave AMA tonight or tomorrow, she will have two weeks more of good therapy for either the MRSA they found at [place] in her hand or the Strep we found evidence of by virtue of the elevated ASO titer. 2. I would go ahead and leave her on meropenem while we attempt to sort this out over the next couple days, but I think it is quite likely she will sign out AMA, and at that point, will just have the oritavancin on board. 3. Note that just the oritavancin therapy may be adequate, as we have had a 100-fold fall in her CRP and resolution of her MRI findings already, and it may be that is all that is required. As long as she has the oritavancin on board and she signs out AMA, I do not think there is any indication for any additional attempts at antibiotics going forward. This case discussed in great detail with Dr. Michael Deluca.
[2017-04-02 20:06] VITALS: BP 99/63; PULSE 75; RESP 20; O2SAT 100
[2017-04-03] MEDS: Meropenem Inj 2,000 MG in 0.9% Sodium Chloride 100 ML IV SCH ×3 (00:41→16:43)
--- NOTE | 2017-04-03 02:41 | PCM.PNMED ---
Subjective Date of Service Apr 03, 2017 Subjective The patient complains of withdrawal symptoms and wants more methadone. She has no other new complaints. She continues to have back pain. Exam Vital Signs Vital Sign - Last Date Time Temp Pulse Resp B/P Pulse Ox O2 Delivery O2 Flow Rate FiO2 04/02/17 20:06 36.9 75 20 99/63 100 Room Air Intake and Output 04/02/17 04/02/17 04/03/17 Cumulative From/Thru 15:00 23:00 07:00 03/24/17 23:02 - 04/02/17 23:55 Intake Total 1104 ml 1048 ml 43778 ml Output Total 6450 ml Balance 1104 ml 1048 ml 21903 ml Intake Oral 750 ml 33884 ml IV Total 354 ml 1048 ml 8731 ml Output Urine Total 6450 ml # Voids 4 44 # Bowel Movements 1 Exam General: Patient was sleeping this afternoon when I entered the room. Patient was easily awakened and then complained of withdrawal symptoms.. HEENT: Head is atraumatic and normocephalic. Eyes: Pupils are equally round and reactive to light and accommodation. Extraocular muscles are intact. Sclera are white, anicteric. Subconjunctival mucosa is pink. Ears and nose are unremarkable. Oropharynx: There is no mucosal lesions, there is no thrush, there is no pharyngitis. Neck: Is supple, there are no nodes, or masses or tenderness. Chest: Is clear to auscultation and percussion. There are no rales, rhonchi, wheezes or rubs. Heart: Rate, rhythm is regular. There is no new murmur, rub or gallop. Abdomen: Good bowel sounds are present. Abdomen is soft, nontender, no organomegaly or masses were appreciated. Extremities: Are symmetrical and well perfused. There is no edema, there is no cellulitis, no rash. There are innumerable well healed old scars on the upper extremities. Track ramos in both antecubital areas. Neurologic: There are no focal neurological deficits. Cranial nerves II through XII are intact. There are no sensory or motor deficits. Psychiatric: Patients mood is calm and she shows no sign of agitation. Again her affect is flat today. Genital: Deferred Rectal: Deferred Lab and Diagnostics Result Diagram: 04/02/1742 04/02/17641 Microbiology Blood cultures 2 pending. Blood culture from 03/22/2017 positive 1:4 with identification and sensitivities pending. Wound culture from left hand abscess performed at [facility] in [place] on 02/27/2017 collected at 1521 hrs. culture wound smear #[id number] showed heavy growth of Staphylococcus aureus methicillin-resistant Staphylococcus aureus. Susceptibilities show resistance to azithromycin ciprofloxacin erythromycin levofloxacin oxacillin and trimethoprim sulfamethoxazole the MRSA is sensitive to clindamycin and tetracycline and vancomycin. . X-Rays, CTs and MRIs MRI CERVICAL SPINE WITH AND WITHOUT CONTRAST IMPRESSION: 1. No epidural abscess. 2. No discitis/osteomyelitis. 3. Multilevel degenerative disc disease. 4. Moderate C5-C6 central canal narrowing. Mild C6-C7 central canal narrowing. 5. Mild bilateral C3-C4 neural foraminal narrowing. Mild right and moderate left C5-C6 neural foraminal narrowing. Moderate right and mild left C6-C7 neural foraminal narrowing. Dictated by: Chioma Jalloh MD, PhD on 03/23/2017 at 11:06 MRI THORACIC SPINE WITH AND WITHOUT CONTRAST IMPRESSION: 1. No epidural abscess identified. There is mild, linear postcontrast enhancement in the posterior epidural space extending from T2-T8 vertebral body levels which may represent a reactive change associated with adjacent T2-T5 myositis or cellulitis or early epidural space infection. 2. Mild post contrast enhancement involving the dura paraspinous soft tissues are the level the T2-T5 vertebral bodies. Finding is nonspecific but can be seen in myositis/cellulitis. Please correlate with clinical data. 3. No evidence of discitis/osteomyelitis. Dictated by: Chioma Jalloh MD, PhD on 03/23/2017 at 9:56 MRI LUMBAR SPINE WITH AND WITHOUT CONTRAST IMPRESSION: 1. No evidence for epidural abscess. 2. No evidence of discitis/osteomyelitis. 3. Postsurgical changes. 4. Multilevel degenerative disease. 5. Multiple psychotropic. 6. Mild L1-L2, L2 and L3 and L4-L5 central canal narrowing. Moderate L3-L4 central canal narrowing. 7. Mild bilateral L1-L2 and L2-L3 neural foraminal narrowing. Moderate bilateral L3-L4 and L4-L5 neural foraminal narrowing. Dictated by: Chioma Jalloh MD, PhD on 03/23/2017 at 8:33 . Cardiac Echo Impressions Echocardiogram Report Name: MARY ANN GALLARDO Kori D ate: 03/28/2017 Height: 65 in Hospital Exam Location: [facility] Weight: 160 lb Gender: Female BSA: 1.8 m2 : 1970 Age: 46 yrs BP: 126/75 mmHg Reason For Study: Possible vegetation Ordering Physician: FAUSTOIST [facility] Performed By: Hannah Landon Referring Physician: Jimbo Hinojosa Interpretation Summary The left ventricle is normal in size. Left ventricular systolic function is normal without focal wall motion abnormalities. The ejection fraction is estimated to be 60-65%. Assessment of diastolic parameters indicates normal left ventricular diastolic function and normal filling pressures. The right ventricle is normal in size, thickness and function. The right ventricular systolic function is normal. The right ventricular systolic pressure is estimated at 22 mmHg assuming a right atrial pressure of 8 mm Hg. Borderline left atrial enlargement. The right atrium is normal in size. There is no significant valvular heart disease. No vegetative masses are visualized on this transthoracic echocardiogram. The aortic root is normal size. Assessment & Plan Mary Ann Gallardo is a 46-year-old female with a past medical history significant for bipolar disorder and IV drug use who presented to [facility] emergency Department for right mid-thoracic back pain. The patient was admitted to hospitalist service for further evaluation and treatment. 1. Acute myositis, present on admission. Active. - Patient recently left AMA due to "panic attack" and re-presented with back pain without neurological deficit. - Continue serial neurologic evaluations at least twice a day focusing on muscle strength and bowel and bladder function. - MRI of thoracic spine showed: "No epidural abscess identified. There is mild, linear postcontrast enhancement in the posterior epidural space extending from T2-T8 vertebral body levels which may represent a reactive change associated with adjacent T2-T5 myositis or cellulitis or early epidural space infection. Mild post contrast enhancement involving the dura paraspinous soft tissues are the level the T2-T5 vertebral bodies. Finding is nonspecific but can be seen in myositis/cellulitis." - Controlled with IV Toradol which has . Therefore, will change to oral ibuprofen. - Continue IV morphine when necessary - Ordered blood cultures 2. Patient has a one positive blood culture out of the aerobic bottle with identification found to be coagulase-negative staph.. Wound culture from an abscess found on left hand at [facility] in [place] obtained on 02/27/2017 was positive for MRSA. - MRI of the thoracic spine today shows improvement in inflammation. - Dr. Schmitz has ordered Oritavancin in place vancomycin - Continue meropenem 2 g every 8 hours for now. - Appreciate Dr. Schmitz's time and expertise. Chronic problems: 2. Bipolar disorder, present on admission. Presumed stable. - Not medically treated. 3. Depression and anxiety, present on admission. Presumed stable. - Not medically treated. 4. History of IV drug use, present on admission. - Encouraged cessation of IV drug use. - VULCAN[employer]ER RUBBER PLATE consult ordered. - As patient used to go to the methadone clinic and use to be given 140 mg of methadone a day per her history, and she reports taking methadone in the hospital room from home, all of her belongings have been backed up with security and her had to leave the room. This is all per hospital policy. For the safety of the patient. We will prescribe methadone 10 mg by mouth 4 times a day when necessary for the patient. 5. Tobacco dependence, present on admission. Stable. - Encouraged smoking cessation. - Ordered nicotine patch as needed. 6. Hepatitis C positive, present on admission. Presumed stable. - Patient recently tested positive at her last admission for hepatitis C. - Ordered genotype and RNA viral load, pending. PRN antiemetics: Zofran and Maalox. PRN bowel regimen: Senna and MiraLAX. PRN analgesics: Tylenol. Disposition: Patient will likely be here for several weeks for IV antibiotic therapy. Once stable may consider transfer to a swing bed unit. Appreciate infectious disease consult by Dr. Schmitz. Dr. Tamayo will follow in a.m. . Pain Evaluation: Adequate Pain Control VTE Prophylaxis: Sub-Q Heparin (Unfractionated) VTE Mechanical Devices: Venous Foot Pump Resuscitation Status: DNR/DNI:Do Not Resuscitate/Intubate Jose Deluca MD Apr 03, 2017 02:41
[2017-04-03 04:28] VITALS: BP 98/62; PULSE 73; RESP 18; O2SAT 97
--- NOTE | 2017-04-03 06:05 | NUR ---
pain/behavior OT dose of Orbactiv given w/o adverse reaction. Care notes about the medication given and pt agreed with the administration. Methadone given as scheduled. Pt is sleeping most of the night. Pt pleasant and cooperative with care this shift.
[2017-04-03 07:32] LABS: BASOPHILS % (AUTO) 1.2 % (0-3); EOSINOPHILS % (AUTO) 13.1 % (0-5); MONOCYTES % (AUTO) 11.2 % (4-12); Mean Corpuscular Hemoglobin 28.2 pg (27.0-35.0); Mean Corpuscular Volume 86.2 fL (81-100); NEUTROPHILS % (AUTO) 43.9 % (40-74); Platelet Count 453 bil/L (150-400)
[2017-04-03 08:10] LABS: Magnesium 2.3 mg/dL (1.6-2.6)
[2017-04-03] MEDS: LORazepam 1 mg Tablet PO PRN ×2 (08:55→16:50)
[2017-04-03] MEDS ORDERED: Vancomycin Serum Trough XX ONE (11:30)
--- NOTE | 2017-04-03 13:02 | PCM.PNMED ---
Subjective Date of Service Apr 03, 2017 Subjective Patient seen and examined. Feels ok, complains of generalized discomfort. Vitals stable. Exam Vital Signs Vital Sign - Last Date Time Temp Pulse Resp B/P Pulse Ox O2 Delivery O2 Flow Rate FiO2 04/03/17 04:28 36.9 73 18 98/62 97 Room Air Intake and Output 04/02/17 04/02/17 04/03/17 Cumulative From/Thru 15:00 23:00 07:00 03/24/17 23:02 - 04/03/17 06:06 Intake Total 1104 ml 1398 ml 21585 ml Output Total 6450 ml Balance 1104 ml 1398 ml 48351 ml Intake Oral 750 ml 350 ml 58705 ml IV Total 354 ml 1048 ml 8731 ml Output Urine Total 6450 ml # Voids 4 2 46 # Bowel Movements 1 Exam General: Patient was sleeping this afternoon when I entered the room. Patient was easily awakened and then complained of withdrawal symptoms.. Neck: Is supple, there are no nodes, or masses or tenderness. Chest: Is clear to auscultation and percussion. There are no rales, rhonchi, wheezes or rubs. Heart: Rate, rhythm is regular. There is no new murmur, rub or gallop. Abdomen: Good bowel sounds are present. Abdomen is soft, nontender, no organomegaly or masses were appreciated. Neurologic: There are no focal neurological deficits. Cranial nerves II through XII are intact. There are no sensory or motor deficits. Psychiatric: Patients mood is calm and she shows no sign of agitation Lab and Diagnostics Result Diagram: 04/03/17 0710 04/03/17 0710 Microbiology Blood cultures 2 pending. Blood culture from 03/22/2017 positive 1:4 with identification and sensitivities pending. Wound culture from left hand abscess performed at [facility] in [place] on 02/27/2017 collected at 1521 hrs. culture wound smear #[id number] showed heavy growth of Staphylococcus aureus methicillin-resistant Staphylococcus aureus. Susceptibilities show resistance to azithromycin ciprofloxacin erythromycin levofloxacin oxacillin and trimethoprim sulfamethoxazole the MRSA is sensitive to clindamycin and tetracycline and vancomycin. . X-Rays, CTs and MRIs MRI CERVICAL SPINE WITH AND WITHOUT CONTRAST IMPRESSION: 1. No epidural abscess. 2. No discitis/osteomyelitis. 3. Multilevel degenerative disc disease. 4. Moderate C5-C6 central canal narrowing. Mild C6-C7 central canal narrowing. 5. Mild bilateral C3-C4 neural foraminal narrowing. Mild right and moderate left C5-C6 neural foraminal narrowing. Moderate right and mild left C6-C7 neural foraminal narrowing. Dictated by: Chioma Jalloh MD, PhD on 03/23/2017 at 11:06 MRI THORACIC SPINE WITH AND WITHOUT CONTRAST IMPRESSION: 1. No epidural abscess identified. There is mild, linear postcontrast enhancement in the posterior epidural space extending from T2-T8 vertebral body levels which may represent a reactive change associated with adjacent T2-T5 myositis or cellulitis or early epidural space infection. 2. Mild post contrast enhancement involving the dura paraspinous soft tissues are the level the T2-T5 vertebral bodies. Finding is nonspecific but can be seen in myositis/cellulitis. Please correlate with clinical data. 3. No evidence of discitis/osteomyelitis. Dictated by: Chioma Jalloh MD, PhD on 03/23/2017 at 9:56 MRI LUMBAR SPINE WITH AND WITHOUT CONTRAST IMPRESSION: 1. No evidence for epidural abscess. 2. No evidence of discitis/osteomyelitis. 3. Postsurgical changes. 4. Multilevel degenerative disease. 5. Multiple psychotropic. 6. Mild L1-L2, L2 and L3 and L4-L5 central canal narrowing. Moderate L3-L4 central canal narrowing. 7. Mild bilateral L1-L2 and L2-L3 neural foraminal narrowing. Moderate bilateral L3-L4 and L4-L5 neural foraminal narrowing. Dictated by: Chioma Jalloh MD, PhD on 03/23/2017 at 8:33 . Cardiac Echo Impressions Echocardiogram Report Name: MARY ANN GALLARDO Kori Royal ate: 03/28/2017 Height: 65 in Hospital Exam Location: [facility] Weight: 160 lb Gender: Female BSA: 1.8 m2 : 1970 Age: 46 yrs BP: 126/75 mmHg Reason For Study: Possible vegetation Ordering Physician: HOSPITALIST [facility] Performed By: Hannah Landon Referring Physician: Jimbo Hinojosa Interpretation Summary The left ventricle is normal in size. Left ventricular systolic function is normal without focal wall motion abnormalities. The ejection fraction is estimated to be 60-65%. Assessment of diastolic parameters indicates normal left ventricular diastolic function and normal filling pressures. The right ventricle is normal in size, thickness and function. The right ventricular systolic function is normal. The right ventricular systolic pressure is estimated at 22 mmHg assuming a right atrial pressure of 8 mm Hg. Borderline left atrial enlargement. The right atrium is normal in size. There is no significant valvular heart disease. No vegetative masses are visualized on this transthoracic echocardiogram. The aortic root is normal size. Assessment & Plan Mary Ann Gallardo is a 46-year-old female with a past medical history significant for bipolar disorder and IV drug use who presented to [facility] emergency Department for right mid-thoracic back pain. The patient was admitted to hospitalist service for further evaluation and treatment. 1. Acute myositis, present on admission. Active. - Patient recently left AMA due to "panic attack" and re-presented with back pain without neurological deficit. - Continue serial neurologic evaluations at least twice a day focusing on muscle strength and bowel and bladder function. - MRI of thoracic spine showed: "No epidural abscess identified. There is mild, linear postcontrast enhancement in the posterior epidural space extending from T2-T8 vertebral body levels which may represent a reactive change associated with adjacent T2-T5 myositis or cellulitis or early epidural space infection. Mild post contrast enhancement involving the dura paraspinous soft tissues are the level the T2-T5 vertebral bodies. Finding is nonspecific but can be seen in myositis/cellulitis." - Controlled with IV Toradol which has . Therefore, will change to oral ibuprofen. - Continue IV morphine when necessary - Ordered blood cultures 2. Patient has a one positive blood culture out of the aerobic bottle with identification found to be coagulase-negative staph.. Wound culture from an abscess found on left hand at [facility] in [place] obtained on 02/27/2017 was positive for MRSA. - MRI of the thoracic spine today shows improvement in inflammation. - Dr. Schmitz has ordered Oritavancin in place vancomycin - Continue meropenem 2 g every 8 hours for now. - Appreciate Dr. Schmitz's time and expertise. Chronic problems: 2. Bipolar disorder, present on admission. Presumed stable. - Not medically treated. 3. Depression and anxiety, present on admission. Presumed stable. - Not medically treated. 4. History of IV drug use, present on admission. - Encouraged cessation of IV drug use. - ALUM MIXER consult ordered. - As patient used to go to the methadone clinic and use to be given 140 mg of methadone a day per her history, and she reports taking methadone in the hospital room from home, all of her belongings have been backed up with security and her had to leave the room. This is all per hospital policy. For the safety of the patient. We will prescribe methadone 10 mg by mouth 4 times a day when necessary for the patient. 5. Tobacco dependence, present on admission. Stable. - Encouraged smoking cessation. - Ordered nicotine patch as needed. 6. Hepatitis C positive, present on admission. Presumed stable. - Patient recently tested positive at her last admission for hepatitis C. - Ordered genotype and RNA viral load, pending. PRN antiemetics: Zofran and Maalox. PRN bowel regimen: Senna and MiraLAX. PRN analgesics: Tylenol. Disposition: Patient will likely be here for several weeks for IV antibiotic therapy. Once stable may consider transfer to a swing bed unit. Appreciate infectious disease consult by Dr. Schmitz. . VTE Prophylaxis: Sub-Q Heparin (Unfractionated) VTE Mechanical Devices: Venous Foot Pump Resuscitation Status: DNR/DNI:Do Not Resuscitate/Intubate Time spent 35 mins Peter Rojas MD Apr 03, 2017 13:02
[2017-04-03 14:03] VITALS: BP 101/67; PULSE 96; RESP 16; O2SAT 99
--- NOTE | 2017-04-03 14:11 | NUR ---
[facility] [place]ing [place] Referral: Updated Nicole at [facility] that this patient is still in house currently waiting for call back from Nicole. Patient will have to go on waitlist as there is no beds currently.
--- NOTE | 2017-04-03 14:38 | PROG NOTE ---
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 INTERVAL HISTORY: Overnight, the patient reports she is still continuing to have low level narcotic withdrawal with some sweats and generalized malaise and weakness. She denies shaking chills, overt fevers, cough, shortness of breath or chest pain. She has minimal back pain at this point in the mid thoracic area which is a more or less constant problem for her and she notes it is especially bad when she is withdrawing. PHYSICAL EXAMINATION: Reveals a relatively comfortable young woman. Temperature 36.6, pulse 96, respiratory rate 16, blood pressure 101/67. She is saturating well on room air and in no acute distress. Mental status is clear. Oral cavity benign. Lungs quite clear. Cardiac tones without murmur or tachycardia and regular rate and rhythm. Abdomen benign. Spine: Nontender. The patient walks without difficulty, has excellent strength in her lower extremities and no spinous tenderness is noted. LABORATORIES: Include a white count 6200 with now 13% eosinophils. Her creatinine is 1.04. LFTs are normal. Recall that her hep C was positive with a viral load of 2800. Blood cultures remain negative. MRSA screen negative. Recall that the follow up thoracic spine MRI showed basically resolution of the paraspinous enhancement seen previously. IMPRESSION: This patient is now doing extremely well. She no longer has fevers. Her CRP has returned to basically 0 from quite an elevated level when she came in and her follow up MRI scan which had previously shown paraspinous enhancement now shows that that has resolved. Recall that yesterday we gave the patient a dose of oritavancin because she was intimating that she might sign out sooner than I wanted to have at least two more weeks of good gram-positive coverage on board. Given the benign appearance of the follow up MRI scan as well as the very low CRP, I think we could probably discharge this patient in the next day or two. RECOMMENDATIONS: 1. The patient can be discharged at any time from an Infectious Disease point of view. 2. I would send her out on levo 750 for 7-10 more days which will function, in concert with her oritavancin, as broad-spectrum coverage for whatever this presumably serious bacterial infection about the spine was. 3. Note that I am not going to go 4-6 weeks or more as one would ordinarily do for diskitis, vertebral osteo or spinal epidural abscess as our follow up MRI scan clearly shows she has none of those entities. 4. This case discussed with the hospitalist. ID will sign off today.
--- NOTE | 2017-04-03 15:48 | NUR ---
Social Work-readiness for discharge: Data:EMR reviewed. Pt is on day 9 of hospitalization for pyomyostitis per H&P. Pt is not medically stable anticipate 1-2 more days. Pt to meet with CDP April today who will work on assessment and help get pt connected with either suboxone or methadone. has started pt on Methadone. Per ID , pt will likely discharge tomorrow on Oral abx. April from [facility] aware of this information. [facility] transport information provided to pt. SW will continue to follow. Assessment:Pt to meet with CDP. Plan:Pt to discharge home when medically stable. CDP to meet with pt today. SW will continue to follow. HANSA Levin
--- NOTE | 2017-04-03 19:51 | NUR ---
AMA Pt decided to leave AMA today because her ride home is available now and not tomorrow. Risks of leaving AMA were reviewed to the pt and still decided to leave. signed AMA form. IV was dc'd; intact. Dr. Lu was notified. Pt walked out of the unit at this time with her and all of their belongings.
--- NOTE | 2017-04-04 20:31 | PCM.DC.MED ---
Discharge Summary Date of Service Apr 04, 2017 Dates of Hospitalization Date of Hospital Admission Mar 25, 2017 at 05:01 Date of Discharge: Apr 03, 2017 Providers: Admitting Physician: Liyah Rogel DO Primary Care Physician: Faizan Attending Physician: Peter Rojas MD Procedures XRay, CTs & MRIs MRI CERVICAL SPINE WITH AND WITHOUT CONTRAST IMPRESSION: 1. No epidural abscess. 2. No discitis/osteomyelitis. 3. Multilevel degenerative disc disease. 4. Moderate C5-C6 central canal narrowing. Mild C6-C7 central canal narrowing. 5. Mild bilateral C3-C4 neural foraminal narrowing. Mild right and moderate left C5-C6 neural foraminal narrowing. Moderate right and mild left C6-C7 neural foraminal narrowing. Dictated by: Chioma Jalloh MD, PhD on 03/23/2017 at 11:06 MRI THORACIC SPINE WITH AND WITHOUT CONTRAST IMPRESSION: 1. No epidural abscess identified. There is mild, linear postcontrast enhancement in the posterior epidural space extending from T2-T8 vertebral body levels which may represent a reactive change associated with adjacent T2-T5 myositis or cellulitis or early epidural space infection. 2. Mild post contrast enhancement involving the dura paraspinous soft tissues are the level the T2-T5 vertebral bodies. Finding is nonspecific but can be seen in myositis/cellulitis. Please correlate with clinical data. 3. No evidence of discitis/osteomyelitis. Dictated by: Chioma Jalloh MD, PhD on 03/23/2017 at 9:56 MRI LUMBAR SPINE WITH AND WITHOUT CONTRAST IMPRESSION: 1. No evidence for epidural abscess. 2. No evidence of discitis/osteomyelitis. 3. Postsurgical changes. 4. Multilevel degenerative disease. 5. Multiple psychotropic. 6. Mild L1-L2, L2 and L3 and L4-L5 central canal narrowing. Moderate L3-L4 central canal narrowing. 7. Mild bilateral L1-L2 and L2-L3 neural foraminal narrowing. Moderate bilateral L3-L4 and L4-L5 neural foraminal narrowing. Dictated by: Chioma Jalloh MD, PhD on 03/23/2017 at 8:33 . Cardiac Echo Impression Echocardiogram Report Name: MARY ANN GALLARDO Kori Royal ate: 03/28/2017 Height: 65 in Hospital Exam Location: [facility] Weight: 160 lb Gender: Female BSA: 1.8 m2 : 1970 Age: 46 yrs BP: 126/75 mmHg Reason For Study: Possible vegetation Ordering Physician: PETER CLAYTON Performed By: Hannah Landon Referring Physician: Jimbo Hinojosa Interpretation Summary The left ventricle is normal in size. Left ventricular systolic function is normal without focal wall motion abnormalities. The ejection fraction is estimated to be 60-65%. Assessment of diastolic parameters indicates normal left ventricular diastolic function and normal filling pressures. The right ventricle is normal in size, thickness and function. The right ventricular systolic function is normal. The right ventricular systolic pressure is estimated at 22 mmHg assuming a right atrial pressure of 8 mm Hg. Borderline left atrial enlargement. The right atrium is normal in size. There is no significant valvular heart disease. No vegetative masses are visualized on this transthoracic echocardiogram. The aortic root is normal size. Brief History Mary Ann Gallardo is a 46-year-old female with a past medical history significant for IV drug abuse who presents to [facility] emergency department complaining of back pain thought to be secondary to recent myositis and possible abscess. She was admitted 03/23/2017 for the suspected abscess but left AMA on 03/24/2017 due to a panic attack. She reports daily IV drug use and she last used around 1400 on 03/24/2017. She denies rhinitis, pharyngitis, chest pain, abdominal pain, nausea, vomiting, fever, chills, dysuria, constipation or diarrhea, any focal weakness, or paresthesias. She does however endorse dull headache at occiput, blurry vision, subjective shortness of breath, and night sweats 2 weeks. She denies saddle anesthesia or bowel or bladder dysfunction. Neurological exam is nonfocal. She denies any complaints at this time. Vital signs in the ER: Temperature 37.3. Pulse 78. Respiratory rate 16. Blood pressure 96/65. Pulse ox 98% room air. She received meropenem and vancomycin in the ED. No PCP. . Hospital Course Mary Ann Gallardo is a 46-year-old female with a past medical history significant for bipolar disorder and IV drug use who presented to [facility] emergency Department for right mid-thoracic back pain. The patient was admitted to hospitalist service for further evaluation and treatment. 1. Acute myositis, present on admission. Active. - Patient recently left AMA due to "panic attack" and re-presented with back pain without neurological deficit. - Continue serial neurologic evaluations at least twice a day focusing on muscle strength and bowel and bladder function. - MRI of thoracic spine showed: "No epidural abscess identified. There is mild, linear postcontrast enhancement in the posterior epidural space extending from T2-T8 vertebral body levels which may represent a reactive change associated with adjacent T2-T5 myositis or cellulitis or early epidural space infection. Mild post contrast enhancement involving the dura paraspinous soft tissues are the level the T2-T5 vertebral bodies. Finding is nonspecific but can be seen in myositis/cellulitis." - Controlled with IV Toradol which has . Therefore, will change to oral ibuprofen. - Continue IV morphine when necessary - Ordered blood cultures 2. Patient has a one positive blood culture out of the aerobic bottle with identification found to be coagulase-negative staph.. Wound culture from an abscess found on left hand at [facility] in [place] obtained on 02/27/2017 was positive for MRSA. - MRI of the thoracic spine today shows improvement in inflammation. - Dr. Schmitz has ordered Oritavancin in place vancomycin - Continue meropenem 2 g every 8 hours for now. - Appreciate Dr. Schmitz's time and expertise. Chronic problems: 2. Bipolar disorder, present on admission. Presumed stable. - Not medically treated. 3. Depression and anxiety, present on admission. Presumed stable. - Not medically treated. 4. History of IV drug use, present on admission. - Encouraged cessation of IV drug use. - [employer] consult ordered. - As patient used to go to the methadone clinic and use to be given 140 mg of methadone a day per her history, and she reports taking methadone in the hospital room from home, all of her belongings have been backed up with security and her had to leave the room. This is all per hospital policy. For the safety of the patient. We will prescribe methadone 10 mg by mouth 4 times a day when necessary for the patient. - Was supposed to setup outpatient methadone before she left. 5. Tobacco dependence, present on admission. Stable. - Encouraged smoking cessation. - Ordered nicotine patch as needed. 6. Hepatitis C positive, present on admission. Presumed stable. - Patient recently tested positive at her last admission for hepatitis C. - Ordered genotype and RNA viral load, pending. PRN antiemetics: Zofran and Maalox. PRN bowel regimen: Senna and MiraLAX. PRN analgesics: Tylenol. Patient has repeatedly signed out AMA before. She is aware of risks in doing so. . Exam Vital Signs (Last) Date Time Temp Pulse Resp B/P Pulse Ox O2 Delivery O2 Flow Rate FiO2 04/03/17 14:03 36.6 96 16 101/67 99 Room Air Test 03/25/17 01:50 03/26/17 07:52 03/27/17 20:03 04/02/17 06:42 Hold Urine Received (Received) Lactic Acid Level 0.9mmol/L (0.4-2.0) Hepatitis C Virus Quantitation 660IU/mL (.) Hepatitis C RNA (PCR) log10 2.820 (.) Hepatitis C Genotype (.) Hepatitis C Genotype Comment Comment (.) Hepatitis C Comment Comment (.) Hold Red Top Tube Received (Received) Erythrocyte Sedimentation Rate 68mm/hr (0-32) C-Reactive Protein 0.1mg/dL (0.0-0.5) Procalcitonin 0.04ng/mL (0.00-0.08) Test 04/03/17 07:10 04/03/17 11:22 White Blood Count 6.7th/mm3 (3.8-10.1) Red Blood Count 4.43mil/mm3 (3.90-5.20) Hemoglobin 12.5g/dL (12.0-15.6) Hematocrit 38.2% (35.0-46.0) Mean Corpuscular Volume 86.2fL (81-100) Mean Corpuscular Hemoglobin 28.2pg (27.0-35.0) Mean Corpuscular Hemoglobin Concent 32.7% (32.0-37.0) Red Cell Distribution Width 14.1% (12.3-15.4) Platelet Count 453bil/L (150-400) Neutrophils (%) (Auto) 43.9% (40-74) Lymphocytes (%) (Auto) 30.3% (14-46) Monocytes (%) (Auto) 11.2% (4-12) Eosinophils (%) (Auto) 13.1% (0-5) Basophils (%) (Auto) 1.2% (0-3) Sodium Level 136mEq/L (134-144) Potassium Level 4.7mEq/L (3.5-5.2) Chloride Level 101mEq/L (97-108) Carbon Dioxide Level 21mmol/L (18-29) Blood Urea Nitrogen 24mg/dL (6-24) Creatinine 1.04mg/dL (0.57-1.00) Estimat Glomerular Filtration Rate 82mL/min (>59) Glucose Level 85mg/dL (60-99) Calcium Level 9.4mg/dL (8.5-10.1) Magnesium Level 2.3mg/dL (1.6-2.6) Total Bilirubin 0.4mg/dL (0.0-1.2) Aspartate Amino Transf (AST/SGOT) 14U/L (0-50) Alanine Aminotransferase (ALT/SGPT) 17U/L (0-32) Alkaline Phosphatase 74U/L (25-150) Total Protein 8.1g/dL (6.4-8.4) Albumin 3.9g/dL (3.4-5.0) Vancomycin Level Trough 21.8mcg/mL Microbiology Results Blood cultures 2 pending. Blood culture from 03/22/2017 positive 1:4 with identification and sensitivities pending. Wound culture from left hand abscess performed at [facility] in [place] on 02/27/2017 collected at 1521 hrs. culture wound smear #[id number] showed heavy growth of Staphylococcus aureus methicillin-resistant Staphylococcus aureus. Susceptibilities show resistance to azithromycin ciprofloxacin erythromycin levofloxacin oxacillin and trimethoprim sulfamethoxazole the MRSA is sensitive to clindamycin and tetracycline and vancomycin. . Discharge Medications No Active Prescriptions or Reported Meds Attending Statement PATIENT SIGNED OUT Peter Vinson MD Apr 04, 2017 20:31
== END 2017-04-03 19:50 | disposition left against medical advice (07) | DRG 558 ==
LOC: SED 22:50 → MPC 03-25 05:01
PROVIDERS: ADMIT Internal Medicine; ATTEND Internal Medicine
DX: M60.08 Infective myositis, other site (principal); B17.10 Acute hepatitis C without hepatic coma; F11.23 Opioid dependence with withdrawal; B96.89 Other specified bacterial agents as the cause of diseases classified elsewhere; F17.210 Nicotine dependence, cigarettes, uncomplicated; F31.9 Bipolar disorder, unspecified; F32.9 Major depressive disorder, single episode, unspecified; F41.9 Anxiety disorder, unspecified; Z86.14 Personal history of Methicillin resistant Staphylococcus aureus infection